=== PATIENT | female | born 1955 | race Hispanic/Latino ===

== ENCOUNTER 2017-06-07 18:50 | Emergency (ER) | payer BC | END 2017-06-07 19:50 | disposition left against medical advice (07) | LOC: ERS 18:50 | DX: Z53.21 Procedure and treatment not carried out due to patient leaving prior to being seen by health care provider (principal) | CPT/HCPCS: 93005; 94760 ==

== ENCOUNTER 2017-06-09 15:25 | Observation (INO) | payer BC ==
[2017-06-09 16:22] VITALS: BMI 43.9
[2017-06-09] MEDS ORDERED: Promethazine HCl 25 MG/ML VIAL IM/IV PRN (17:36)
[2017-06-09 17:39] LABS: #Basophils 0.1 thou/uL (0.0-0.2); #Lymphocytes 1.4 thou/uL (1.20-3.40); #Monocytes 0.6 thou/uL (0.11-0.59); #Neutrophils 5.3 thou/uL (1.40-6.50); %Basophils 0.9 % (0.0-1.0); %Eosinophils 0.5 % (0.0-10.0); %Lymphocytes 18.8 % (21.0-51.0); %Monocytes 7.8 % (0.0-10.0); Hemoglobin 13.4 g/dL (12.0-16.0); Mean Corpuscular HGB CONC 33.3 g/dL (32.0-36.0); Mean Corpuscular Hemoglobin 29.8 pg (27.0-31.0); Mean Corpuscular Volume 89.3 fl (81.0-99.0); Mean Platelet Volume 8.2 fL (7.4-10.4); Platelet Count 295 thou/uL (130-400); RBC Distribution Width 12.2 % (11.5-14.5); Red Blood Cell (RBC) Count 4.49 mill/uL (4.20-5.40); White Blood Cell (WBC) Count 7.3 thou/uL (4.8-10.8)
[2017-06-09] MEDS ORDERED: hydrALAZINE 20 MG/ML VIAL SLOW IVP PRN (17:59)
[2017-06-09] MEDS ORDERED: Labetalol HCl 100 MG/20 ML VIAL SLOW IVP PRN (17:59)
[2017-06-09] MEDS ORDERED: Sodium Chloride 0.9% 1,000 ML IV SCH (18:00)
[2017-06-09 18:01] LABS: ALT (SGPT) 12 U/L (8-55); AST (SGOT) 17 U/L (5-34); Albumin 4.2 g/dL (3.4-4.8); Alkaline Phosphatase 110 U/L (40-150); Anion Gap 12 mmol/L (10-20); BUN (Urea Nitrogen) 10 mg/dL (9.8-20.1); Bilirubin, Total 0.8 mg/dL (0.2-1.2); Calc. Creatinine Clearance 117 mL/min (70-130); Calcium 9.8 mg/dL (7.8-10.44); Carbon Dioxide 27 mmol/L (23-31); Chloride 106 mmol/L (98-107); Estimated GFR-MDRD 69; Globulin 3.1 g/dL (2.4-3.5); Glucose 119 mg/dL (80-115); Magnesium 2.2 mg/dL (1.6-2.6); Phosphorus 2.7 mg/dL (2.3-4.7); Potassium 3.4 mmol/L (3.5-5.1); Protein, Total 7.3 g/dL (6.0-8.3); Sodium 142 mmol/L (136-145)
[2017-06-09] MEDS: Ondansetron HCl/PF 4 MG/2 ML Vial IVP PRN (18:08)
[2017-06-09] MEDS: Lorazepam 2 MG/ML VIAL SLOW IVP PRN (18:16)
[2017-06-09] MEDS: Sodium Chloride 0.9% 1,000 ML IV SCH (18:25)
[2017-06-09] MEDS ORDERED: Docusate 100 MG CAP PO PRN (18:32)
[2017-06-09] MEDS ORDERED: Ondansetron ODT 4 MG TAB PO PRN (18:32)
[2017-06-09] MEDS ORDERED: Dextrose 50% Abboject 50 ML SYRINGE SLOW IVP PRN (18:50)
[2017-06-09] MEDS ORDERED: Dextrose 5% in Water 1,000 ML IV PRN (18:50)
[2017-06-09 18:52] LABS: Acetaminophen Less than 6.0 mcg/mL (10.0-30.0); Alcohol Less than 10 mg/dL (Less than 10); Salicylate Less than 8.0 mg/dL (15.0-30.0)
[2017-06-09 19:21] LABS: Cocaine Metabolite Screen Detected (NotDetected); Medtox Reader # READER 1; Methamphetamine Not Detected (NotDetected); Opiate Screen Detected (NotDetected); Phencyclidine (PCP) Not Detected (NotDetected); THC/Cannabinoid Screen Not Detected (NotDetected)
[2017-06-09 19:22] LABS: Amphetamine Not Detected (NotDetected); Barbiturates Screen Not Detected (NotDetected); Benzodiazepine Screen Not Detected (NotDetected); Medtox Control Line Valid? VALID (VALID); Methadone Not Detected (NotDetected); Oxycodone Screen Not Detected (NotDetected); Tricyclic Screen Not Detected (NotDetected)
[2017-06-09] MEDS: Apixaban 5 MG TAB PO SCH (20:50)
[2017-06-09] MEDS: Bupropion 100 MG SR TAB PO SCH (20:50)
[2017-06-09] MEDS ORDERED: Atorvastatin Calcium 40 MG TAB PO SCH (21:00)
[2017-06-09] MEDS ORDERED: Apixaban 5 MG TAB PO SCH (21:00)
[2017-06-10] MEDS: Lorazepam 2 MG/ML VIAL SLOW IVP PRN ×3 (00:35→14:06)
--- NOTE | 2017-06-10 01:00 | HP-2 ---
DATE OF ADMISSION: 06/09/2017 TIME: 1700 CODE STATUS: FULL. PRIMARY CARE PHYSICIAN: Jonny Hancock MD ATTENDING: Gonzales Butt M.D. RESIDENT: Leon Montalvo DO HISTORIAN: The patient. CHIEF COMPLAINT: Opiate withdrawals. HISTORY OF PRESENT ILLNESS: Patient presented to the clinic today asking for help with opiate withdrawals. Five days ago, she was prescribed 70 [place] 10 mg tablets and took them all within 5 days. In addition, she took additional tablets that she had purchased on the street so she has been doing this for some time; however, she has decided that she should stop abusing opiates and apparently had not had any since then. She is complaining of anxiety and pain, nausea, and diarrhea. Patient states that prior to coming in, she had been taking everything that had been prescribed. In addition, spending approximately $1000 on [place] that was bought "on the street" per month. In addition, patient had a blood pressure of 190s/110s. She was asymptomatic, denied dizziness, change in vision. This is apparently her baseline, as she does not typically take her antihypertensives that are prescribed. In general, she had an elevated blood pressure. She was sent over for hypertensive urgency for observation. PAST MEDICAL HISTORY: Hyperlipidemia, hypertension, CKD 3, opiate dependence, diabetes mellitus, diastolic congestive heart failure with preserved ejection fraction, atrial fibrillation, major depressive disorder, obstructive sleep apnea, and iron-deficient anemia. PAST SURGICAL HISTORY: None. ALLERGIES: None. MEDICATIONS: Metformin 1000 mg p.o. b.i.d, Wellbutrin 100 mg p.o. b.i.d., Zoloft 50 mg daily, metoprolol 100 mg daily, lisinopril 20 mg daily, Norvasc 10 mg daily, Lasix 40 mg daily, atorvastatin 40 mg daily, Eliquis 5 mg p.o. b.i.d. , and iron 325 mg daily. SOCIAL HISTORY: Tobacco none. Alcohol none. Drugs, opiates, specifically [place]. REVIEW OF SYSTEMS: General: Patient denies fever, chills, change in appetite. Admits to fatigue. HEENT: Denies any vision changes, eye pain, nasal congestion, or rhinorrhea. Respiratory: Denies any cough, congestion, or shortness of breath. Cardiovascular: Denies chest pains, palpitations, or edema. GI: Complains of nausea and diarrhea. Denies any vomiting, constipation, abdominal pain. Genitourinary: Denies incontinence, dysuria. Skin: Denies rash or lesions. Musculoskeletal: Complains of joint pain. Neurologic: No weakness or numbness. Psychiatric: Admits to anxiety, depression. PHYSICAL EXAMINATION: VITAL SIGNS: Blood pressure 169/82, pulse 80, respiratory rate 18, T-max 98.6, pulse ox 95% on room air, current weight 105 kilograms. GENERAL: Patient is alert and oriented x3 in no apparent distress. Patient is obese. HEENT: PERRLA, EOMI. Conjunctivae within normal limits. NECK: Supple without lymphadenopathy. CARDIAC: Regular rate and rhythm, no murmur. RESPIRATORY: Normal effort. Clear to auscultation bilaterally without retractions. SKIN: Warm and dry. ABDOMEN: Soft, nontender. Bowel sounds in all 4 quadrants without mass or distention. EXTREMITIES: There is no clubbing or cyanosis. MUSCULOSKELETAL: Structure is normal. Tone is normal. NEUROLOGIC: Cranial nerves II-XII are intact. There is no focal neurological deficits. LABORATORY DATA: CBC: Hemoglobin 13.4, hematocrit 40.1, white count 7.3, platelets 295. CMP: Sodium 142, potassium 3.4, chloride 106, bicarbonate 27, BUN 10, creatinine 0.84, glucose 119, calcium 9.3. Total serum protein 7.3, alkaline phos 4.2, total bilirubin 0.8. AST 17, ALT 12, alkaline phosphatase 110, GFR 69, phos is 2.7, mag is 2.2. BNP is 247 pending or UDS, serum Tylenol , and serum toxicity. ASSESSMENT AND PLAN: This is a 62-year-old female with hypertensive urgency and opiate withdrawals. 1. Hypertensive urgency. We will give her prescribed home meds. Monitor BMP. Get hydralazine p.r.n. 2. Opiate withdrawal and overdose to get Tylenol levels and UDS. Zofran, Phenergan for nausea and vomiting. Ativan PRN for agitation 3. Chronic kidney disease, 3. The patient is at her baseline GFR and creatinine. We will give p.o. fluids and get a repeat CMP in the morning. 4. Diabetes. Continue home meds. A.c. and at bedtime glucose checks. 5. Katty depression. Continue her home Zoloft and Wellbutrin. 6. Atrial fibrillation. Continue her home Eliquis and she is currently rate controlled. 7. Diastolic congestive heart failure. No current symptoms to her home statin. 8. Hypokalemia. This is mild and asymptomatic. We will recheck in the morning. ITZEL
[2017-06-10] MEDS ORDERED: Acetaminophen 325 MG TAB PO PRN (04:03)
[2017-06-10] MEDS: Sodium Chloride 0.9% 1,000 ML IV SCH ×2 (05:28→16:31)
[2017-06-10 05:30] LABS: ALT (SGPT) 11 U/L (8-55); AST (SGOT) 13 U/L (5-34); Albumin 3.6 g/dL (3.4-4.8); Alkaline Phosphatase 100 U/L (40-150); Anion Gap 12 mmol/L (10-20); BUN (Urea Nitrogen) 10 mg/dL (9.8-20.1); Bilirubin, Total 0.7 mg/dL (0.2-1.2); Calc. Creatinine Clearance 107 mL/min (70-130); Calcium 9.3 mg/dL (7.8-10.44); Carbon Dioxide 28 mmol/L (23-31); Chloride 106 mmol/L (98-107); Estimated GFR-MDRD 62; Globulin 2.9 g/dL (2.4-3.5); Glucose 98 mg/dL (80-115); Potassium 3.5 mmol/L (3.5-5.1); Protein, Total 6.5 g/dL (6.0-8.3); Sodium 142 mmol/L (136-145)
--- NOTE | 2017-06-10 05:49 | PDOC.FM ---
- Subjective Subjective: Pt doing well today. Complains of continued headache, nausea, and agitation. She has no new symptoms and that her existing symptoms are reasonably well controlled and improving. There were no acute events over night. - Objective MAR Reviewed: Yes Vital Signs & Weight: Vital Signs (12 hours) Temp Pulse Resp BP BP Pulse Ox 06/10/17 03:45 98.4 F 70 20 180/105 H 96 06/09/17 23:17 98.7 F 81 18 161/94 H 94 L 06/09/17 20:50 98.6 F 80 18 06/09/17 19:54 98.6 F 80 18 06/09/17 19:28 99.1 F 68 18 173/92 H 96 Weight Weight 105.324 kg I&O: 06/08/17 06/09/17 06/10/17 06:59 06:59 06:59 Intake Total 1529 Balance 1529 Result Diagrams: 06/09/17 17:03 06/10/17 04:38 <Leon Montalvo - Last Filed: 06/10/17 05:48> - Objective Vital Signs & Weight: Vital Signs (12 hours) Temp Pulse Resp BP Pulse Ox 06/10/17 11:27 98.1 F 83 20 164/102 H 96 06/10/17 08:00 98.0 F 87 16 06/10/17 07:44 98.0 F 87 16 183/93 H 95 06/10/17 06:21 76 173/94 H 06/10/17 03:45 98.4 F 70 20 180/105 H 96 Weight Weight 105.324 kg I&O: 06/09/17 06/10/17 06/11/17 06:59 06:59 06:59 Intake Total 1529 Balance 1529 Result Diagrams: 06/09/17 17:03 06/10/17 04:38 <Latisha Boyd - Last Filed: 06/10/17 13:04> Phys Exam - Physical Examination Constitutional: NAD HEENT: PERRLA, moist MMs Neck: no nodes, no JVD, supple Respiratory: clear to auscultation bilateral Cardiovascular: no significant murmur Gastrointestinal: soft, non-tender, no distention Musculoskeletal: no edema Neurological: non-focal, normal sensation, moves all 4 limbs Lymphatic: no nodes Psychiatric: A&O x 3 Deviation from normal: Pt has significant anxiety surrounding not having opiates Skin: no rash, normal turgor <Leon Montalvo - Last Filed: 06/10/17 05:48> Dx/Plan (1) Hypertensive urgency Code(s): I16.0 - HYPERTENSIVE URGENCY Status: Acute (2) Opiate withdrawal Code(s): F11.23 - OPIOID DEPENDENCE WITH WITHDRAWAL Status: Acute (3) Diastolic congestive heart failure Code(s): I50.30 - UNSPECIFIED DIASTOLIC (CONGESTIVE) HEART FAILURE Status: Chronic QualifierTitle: Congestive heart failure chronicity: chronic Qualified Code(s): I50.32 - Chronic diastolic (congestive) heart failure (4) Diabetes mellitus Code(s): E11.9 - TYPE 2 DIABETES MELLITUS WITHOUT COMPLICATIONS Status: Chronic QualifierTitle: Diabetes mellitus type: type 2 Diabetes mellitus complication status: with unspecified complications Diabetes mellitus jail insulin use: without jail use Qualified Code(s): E11.8 - Type 2 diabetes mellitus with unspecified complications (5) Atrial fibrillation Code(s): I48.91 - UNSPECIFIED ATRIAL FIBRILLATION Status: Chronic (6) CKD (chronic kidney disease) stage 2, GFR 60-89 ml/min Code(s): N18.2 - CHRONIC KIDNEY DISEASE, STAGE 2 (MILD) Status: Chronic - Plan Plan: 1. Hypertensive Urgency - BP continues to be elevated with a max of 180/105 - No antihypertensives have been given as of yet as they are her morning meds. It is unlikely that the pt has been compliant with her meds at home. Will give as ordered by PCP today and follow the BP. Will adjust tomorrow after getting a baseline of control when compliant. 2. Opiate withdrawal - tylenol level WNL. LFTs normal. No concern for OD as suspected on admission - N/V is controlled - Pt is anxious, however this is not severe - Order case management consult for possible placement in rehab facility. 3. dCHF - no signs of exacerbation - pt is currently at baseline - continue home antihypertensives, lasix, and statin 4. afib - rate controlled - continue eliquis 5. DM - ACHS BG checks, will adjust home meds if needed - continue metformin 6. CKD III - at baseline. Continue to follow BMP <Leon Montalvo - Last Filed: 06/10/17 05:48> Attending Addendum - Attending Addendum I personally evaluated the patient and discussed the management with Dr. Montalvo. I agree with the History, Examination, Assessment and Plan documented above with any addition or exceptions noted below. The patient was hypertensive this morning but she hasn't been taking bp meds as prescribed at home. Home med restarted. Will repeat tylenol level. From a withdrawal standpoint, she is doing well. Mood is improved. She denies concerns or agitation. <Latisha Boyd - Last Filed: 06/10/17 13:04>
[2017-06-10 06:58] LABS: Magnesium 2.2 mg/dL (1.6-2.6); Phosphorus 3.5 mg/dL (2.3-4.7)
[2017-06-10] MEDS ORDERED: metFORMIN 500 MG TAB PO SCH (08:00)
[2017-06-10] MEDS ORDERED: Lisinopril 20 MG TAB PO SCH (09:00)
[2017-06-10] MEDS ORDERED: Amlodipine 10 MG TAB PO SCH (09:00)
[2017-06-10] MEDS ORDERED: Furosemide 40 MG TAB PO SCH (09:00)
[2017-06-10] MEDS: Bupropion 100 MG SR TAB PO SCH (09:26)
[2017-06-10] MEDS: Apixaban 5 MG TAB PO SCH (09:27)
[2017-06-10] MEDS: Ondansetron HCl/PF 4 MG/2 ML Vial IVP PRN (09:30)
[2017-06-10 15:43] VITALS: BP 164/93; TEMP 97.6
[2017-06-10 16:06] LABS: ALT (SGPT) 12 U/L (8-55); AST (SGOT) 14 U/L (5-34); Acetaminophen Less than 6.0 mcg/mL (10.0-30.0); Alkaline Phosphatase 107 U/L (40-150); Anion Gap 13 mmol/L (10-20); BUN (Urea Nitrogen) 10 mg/dL (9.8-20.1); Bilirubin, Total 0.6 mg/dL (0.2-1.2); Calc. Creatinine Clearance 99 mL/min (70-130); Calcium 9.2 mg/dL (7.8-10.44); Carbon Dioxide 26 mmol/L (23-31); Chloride 105 mmol/L (98-107); Estimated GFR-MDRD 57; Globulin 3.2 g/dL (2.4-3.5); Glucose 119 mg/dL (80-115); Potassium 3.2 mmol/L (3.5-5.1); Protein, Total 7.2 g/dL (6.0-8.3); Sodium 141 mmol/L (136-145)
[2017-06-10] MEDS ORDERED: Potassium Chloride 20 MEQ TAB PO SCH (16:30)
--- NOTE | 2017-06-11 00:14 | DIS-2 ---
DATE OF ADMISSION: 06/09/2017 DATE OF DISCHARGE: 06/10/2017 RESIDENT: Leon Montalvo D.O. ADMITTING ATTENDING: Gonzales Butt M.D. DISCHARGE ATTENDING: Latisha Boyd M.D. CONSULTATIONS: None. PROCEDURES: None. PRIMARY DIAGNOSIS: Hypertensive urgency. SECONDARY DIAGNOSES: Opiate withdrawal, hypertension, diabetes, cholesterol, congestive heart failure with preserved ejection fraction, paroxysmal atrial fibrillation. DISCHARGE MEDICATIONS: Bupropion 100 mg p.o. b.i.d., metformin 1000 mg p.o. b.i.d., Zofran 4 mg p.o. q.i.d. p.r.n. nausea, Lipitor 40 mg p.o. at bedtime, Eliquis 5 mg p.o. b.i.d., metoprolol succinate 100 mg p.o. daily, lisinopril 20 mg p.o. daily, Colace 100 mg p.o. p.r.n., amlodipine 10 mg p.o. daily, furosemide 40 mg p.o. daily, sertraline 50 mg p.o. daily. DISCONTINUED MEDICATIONS: [place]. HOSPITAL COURSE: The patient was directly admitted from clinic with hypertensive urgency with systolic blood pressure in the 190s. Additionally, patient was withdrawing from opiates concerning the hypertension. Patient has been noncompliant with medications and was taking none of the prescribed medications. Patient was monitored for signs of end organ damages, but at no time, did she exhibit any symptoms. Creatinine was at baseline. She experienced no headache or change in his vision and at the time of discharge, her blood pressure is still elevated. She will be restarted on her home medications and was not to the point of concern. Blood pressure was 160s/90s. Concerning opiate withdrawal, apparently the patient had taken at least 70 [place] 10/325 within a 5-day period and had been taking similar quantities of the medication between prescription and was buying elicitly for some time. Patient on Thursday when she ran out, decided that she should stop abusing the drugs and quit taking the medication. She presented to the clinic on Thursday with anxiety, nausea, headache and was asking for help for opiate withdrawals. While admitted the patient was given Phenergan and Zofran for nausea and Ativan for anxiety. At this time of admission, patient had most symptoms are resolved. She is no longer anxious. We discussed outpatient rehab and this has been initiated in the clinic. Patient knows to follow up before the end of the week in clinic to begin getting her set up with outpatient rehab for opiate addiction. DISCHARGE INSTRUCTIONS: Disposition: Stable. Location: Home. Diet: Heart healthy and a low carb. FOLLOWUP: Follow up with PCP, Dr. Jonny Hancock within 3 days. ITZEL
--- NOTE | 2017-06-18 19:30 | EKG ---
Test Reason : ROUTINE Blood Pressure : / mmHG Vent. Rate : 084 BPM Atrial Rate : 147 BPM P-R Int : 000 ms QRS Dur : 090 ms QT Int : 354 ms P-R-T Axes : 000 004 071 degrees QTc Int : 418 ms Atrial fibrillation Abnormal ECG When compared with ECG of 07-JUN-2017 19:04, (Unconfirmed) No significant change was found Confirmed by BARBARA OLMOS ([id number]) on 06/18/2017 7:29:35 PM Referred By: AAKASH Confirmed By:BARBARA OLMOS
== END 2017-06-10 16:46 | disposition home or self-care (01) ==
LOC: 2SW 15:45
PROVIDERS: ADMIT Family Medicine; ATTEND Family Medicine
DX: I16.0 Hypertensive urgency (principal); F11.23 Opioid dependence with withdrawal; E78.00 Pure hypercholesterolemia, unspecified; I48.0 Paroxysmal atrial fibrillation; E78.5 Hyperlipidemia, unspecified; E11.22 Type 2 diabetes mellitus with diabetic chronic kidney disease; I13.0 Hypertensive heart and chronic kidney disease with heart failure and stage 1 through stage 4 chronic kidney disease, or unspecified chronic kidney disease; I50.30 Unspecified diastolic (congestive) heart failure; N18.3 Chronic kidney disease, stage 3 (moderate); F32.9 Major depressive disorder, single episode, unspecified; G47.33 Obstructive sleep apnea (adult) (pediatric); D50.9 Iron deficiency anemia, unspecified; E87.6 Hypokalemia; Z91.14 Patient's other noncompliance with medication regimen; Z79.84 Long term (current) use of oral hypoglycemic drugs; Z79.01 Long term (current) use of anticoagulants; Z79.899 Other long term (current) drug therapy
CPT/HCPCS: 36415; 36416; 80053; 80306; 80307; 83735; 83880; 84100; 85025; 93005; 93010; 96361; 96374; 96376; 99282; A4216; G0378; J2060; J2405

== ENCOUNTER 2017-10-27 20:51 | Emergency (ER) | payer BC ==
[2017-10-27 21:26] LABS: #Basophils 0.1 thou/uL (0.0-0.2); #Eosinphils 0.1 thou/uL (0.0-0.7); #Lymphocytes 1.1 thou/uL (1.20-3.40); #Monocytes 0.4 thou/uL (0.11-0.59); #Neutrophils 6.1 thou/uL (1.40-6.50); %Basophils 0.6 % (0.0-1.0); %Eosinophils 0.9 % (0.0-10.0); %Lymphocytes 14.3 % (21.0-51.0); %Monocytes 5.4 % (0.0-10.0); %Neutrophils 78.8 % (42.0-75.0); Hemoglobin 12.2 g/dL (12.0-16.0); Mean Corpuscular HGB CONC 34.1 g/dL (32.0-36.0); Mean Corpuscular Hemoglobin 30.7 pg (27.0-31.0); Mean Corpuscular Volume 89.8 fl (81.0-99.0); Mean Platelet Volume 7.8 fL (7.4-10.4); Platelet Count 238 thou/uL (130-400); RBC Distribution Width 12.1 % (11.5-14.5); Red Blood Cell (RBC) Count 3.99 mill/uL (4.20-5.40); White Blood Cell (WBC) Count 7.8 thou/uL (4.8-10.8)
[2017-10-27 21:43] LABS: Bilirubin Negative (Negative); Blood, Urine Negative (Negative); Clarity CLEAR (Clear); Glucose, Urine (Dipstick) Negative (Negative); Leukocyte Small (Negative); Nitrite Negative (Negative); Protein, Urine (Dipstick) Negative (Neg-Trace); Specific Gravity, Urine 1.023 (1.002-1.036); pH, Urine 6.5 (5.0-9.0)
[2017-10-27 21:44] LABS: Bacteria/HPF None Seen HPF (None Seen); Hyaline Casts/LPF 0-3 HYALINE CAST LPF (0-3 Hyaline); Pathc Cast-AUWi Flag 0.29 (0-2.49); RBC/HPF 0-3 HPF (0-3); Squamous Epithelial 0-3 HPF (0-3)
[2017-10-27 21:47] LABS: ALT (SGPT) 10 U/L (8-55); AST (SGOT) 15 U/L (5-34); Acetaminophen Less than 6.0 mcg/mL (10.0-30.0); Albumin 3.9 g/dL (3.4-4.8); Alcohol Less than 10 mg/dL (Less than 10); Alkaline Phosphatase 92 U/L (40-150); Anion Gap 12 mmol/L (10-20); BUN (Urea Nitrogen) 20 mg/dL (9.8-20.1); Bilirubin, Total 0.6 mg/dL (0.2-1.2); Calc. Creatinine Clearance 0 mL/min (70-130); Carbon Dioxide 23 mmol/L (23-31); Chloride 108 mmol/L (98-107); Estimated GFR-MDRD 67; Globulin 2.7 g/dL (2.4-3.5); Glucose 183 mg/dL (80-115); Protein, Total 6.6 g/dL (6.0-8.3); Salicylate Less than 8.0 mg/dL (15.0-30.0); Sodium 139 mmol/L (136-145)
[2017-10-27 21:51] LABS: Amphetamine Not Detected (NotDetected); Barbiturates Screen Not Detected (NotDetected); Benzodiazepine Screen Not Detected (NotDetected); Cocaine Metabolite Screen Not Detected (NotDetected); Medtox Control Line Valid? VALID (VALID); Medtox Reader # READER 1; Methadone Not Detected (NotDetected); Methamphetamine Not Detected (NotDetected); Opiate Screen Detected (NotDetected); Oxycodone Screen Not Detected (NotDetected); Phencyclidine (PCP) Not Detected (NotDetected); THC/Cannabinoid Screen Not Detected (NotDetected); Tricyclic Screen Not Detected (NotDetected)
== END 2017-10-27 23:07 | disposition home or self-care (01) ==
LOC: ERS 20:51
DX: R53.1 Weakness (principal); R41.82 Altered mental status, unspecified; T39.1X5A Adverse effect of 4-Aminophenol derivatives, initial encounter; E11.9 Type 2 diabetes mellitus without complications; I11.0 Hypertensive heart disease with heart failure; I50.9 Heart failure, unspecified
CPT/HCPCS: 36415; 80053; 80306; 80307; 81003; 81015; 85025; 99283

== ENCOUNTER 2018-02-07 18:30 | Inpatient (IN) | payer BC, SELFPAY ==
[2018-02-07 18:52] LABS: #Basophils 0.1 thou/uL (0.0-0.2); #Eosinphils 0.1 thou/uL (0.0-0.7); #Lymphocytes 1.7 thou/uL (1.20-3.40); #Monocytes 0.5 thou/uL (0.11-0.59); %Basophils 1.2 % (0.0-1.0); %Eosinophils 1.2 % (0.0-10.0); %Lymphocytes 26.7 % (21.0-51.0); %Monocytes 8.5 % (0.0-10.0); %Neutrophils 62.4 % (42.0-75.0); Hemoglobin 13.2 g/dL (12.0-16.0); Mean Corpuscular HGB CONC 33.7 g/dL (32.0-36.0); Mean Corpuscular Volume 88.9 fL (78.0-98.0); Mean Platelet Volume 7.9 fL (7.4-10.4); Platelet Count 248 thou/uL (130-400); RBC Distribution Width 12.9 % (11.5-14.5); White Blood Cell (WBC) Count 6.3 thou/uL (4.8-10.8)
[2018-02-07 19:18] LABS: ALT (SGPT) 11 U/L (8-55); AST (SGOT) 17 U/L (5-34); Albumin 4.2 g/dL (3.4-4.8); Alkaline Phosphatase 111 U/L (40-150); Anion Gap 11 mmol/L (10-20); BUN (Urea Nitrogen) 13 mg/dL (9.8-20.1); Bilirubin, Total 0.5 mg/dL (0.2-1.2); CK (CPK) 87 U/L (29-168); Calc. Creatinine Clearance 0 mL/min (70-130); Calcium 9.3 mg/dL (7.8-10.44); Carbon Dioxide 26 mmol/L (23-31); Chloride 106 mmol/L (98-107); Estimated GFR-MDRD 72; Globulin 3.3 g/dL (2.4-3.5); Glucose 128 mg/dL (80-115); Lipase 19 U/L (8-78); Potassium 3.3 mmol/L (3.5-5.1); Protein, Total 7.5 g/dL (6.0-8.3); Sodium 140 mmol/L (136-145)
[2018-02-07 19:19] LABS: CKMB 1.7 ng/mL (0-6.6); Troponin I Less than 0.010 ng/mL (< 0.028)
[2018-02-07] MEDS ORDERED: Nitroglycerin 0.4 MG TAB (25 Tab Bottle) ONE (19:20)
[2018-02-07] MEDS ORDERED: Furosemide 40 MG/4 ML VIAL ONE (19:20)
[2018-02-07] MEDS ORDERED: Nitroglycerin 2% Ointment 1 INCH/1 GM Packet ONE (20:33)
[2018-02-07] MEDS ORDERED: Potassium Chloride 20 MEQ TAB ONE (20:33)
--- NOTE | 2018-02-07 20:45 | RAD ---
RADIOGRAPH CHEST 1 VIEW: Date: 02-07-18 Time: 6:46 p.m. HISTORY: 62-year-old female with dyspnea. COMPARISON: 01-15-17 FINDINGS: Again noted is the cardiomegaly. There is a new finding of patchy area of increased density in the ri ght lower lung zone, and questionably also in the retrocardiac portion of left lower lobe. No pneumot horax. No effacement of lateral costophrenic angles. IMPRESSION: 1. Right basilar infiltrate vs atelectasis. 2. Cardiomegaly. 3. Questionable left lower infiltrate. MILEY [] POS: ALEKS
[2018-02-07] MEDS ORDERED: Ondansetron HCl/PF 4 MG/2 ML Vial ONE ×2 (21:19→22:15)
[2018-02-07] MEDS ORDERED: niCARdipine 20MG In NaCl 20 MG/200 ML BAG ONE (21:19)
[2018-02-07] MEDS ORDERED: Acetaminophen 325 MG TAB ONE (22:15)
[2018-02-07] MEDS ORDERED: HumaLOG 300 UNITS/3 ML VIAL SC PRN (22:58)
[2018-02-07] MEDS ORDERED: Dextrose 5% in Water 1,000 ML IV PRN (22:58)
[2018-02-07] MEDS ORDERED: Dextrose 50% Abboject 50 ML SYRINGE SLOW IVP PRN (22:58)
[2018-02-07 22:59] LABS: Troponin I Less than 0.010 ng/mL (< 0.028)
[2018-02-07] MEDS ORDERED: Diltiazem 125 MG in Sodium Chloride 0.9% 100 ML IVPB SCH (23:00)
[2018-02-08] MEDS: Acetaminophen 325 MG TAB PO PRN ×2 (00:39→20:45)
[2018-02-08 01:34] VITALS: BMI 42.4
[2018-02-08 01:59] LABS: Troponin I Less than 0.010 ng/mL (< 0.028)
[2018-02-08] MEDS: Ondansetron HCl/PF 4 MG/2 ML Vial IVP PRN ×3 (02:51→23:09)
[2018-02-08] MEDS ORDERED: Docusate 100 MG CAP PO PRN (03:12)
[2018-02-08 04:05] LABS: Amphetamine Not Detected (NotDetected); Barbiturates Screen Not Detected (NotDetected); Benzodiazepine Screen Not Detected (NotDetected); Cocaine Metabolite Screen Detected (NotDetected); Medtox Control Line Valid? VALID (VALID); Medtox Reader # READER 4; Methadone Not Detected (NotDetected); Methamphetamine Not Detected (NotDetected); Opiate Screen Detected (NotDetected); Oxycodone Screen Detected (NotDetected); Phencyclidine (PCP) Not Detected (NotDetected); THC/Cannabinoid Screen Not Detected (NotDetected); Tricyclic Screen Not Detected (NotDetected)
--- NOTE | 2018-02-08 05:37 | HP ---
PRIMARY CARE PHYSICIAN: No PCP. CODE STATUS: FULL CODE. TIME OF EVALUATION: 9:10 p.m. CHIEF COMPLAINT: Chest pain, headache, found to have high blood pressure, that was in control. HISTORY OF PRESENT ILLNESS: This is a 62-year-old female patient. The patient has a past medical hi story of hypertension, diabetes, CHF, noncompliance. The patient was not taking medication at home, came to the hospital after having headache and was associated with chest pain, but no clear triggers, no alleviating factors. The patient during my examination high blood pressure 220/115, for the reaso n placed on Cardene drip with resolution of the dizziness, headache, and uncontrolled blood pressure. The patient developed AFib with RVR and therefore switched to Cardizem drip. We will need Cardiolo gy consult in the morning for further recommendations. The patient has bilateral infiltrates. No ev idence of any infection, will be secondary to underlying CHF that might be caused by hypertensive karis rgency. Symptoms are severe. Much improved after initial treatment. REVIEW OF SYSTEMS: Constitutional: No fever or chills. The patient reported generalized weakness. Respiratory: No cough, sputum production. She reported shortness of breath. Cardiovascular: No c hest pain, palpitations or shortness of breath. Gastrointestinal: The patient had nausea, no vomiti ng, no diarrhea or abdominal pain. NREMT: No dizziness. The patient reported headache. Feeling ligh theaded with high blood pressure. Genitourinary: No burning on urination. Extremities: No leg swe lling. All other systems were reviewed and are negative except for the findings mentioned above. PAST MEDICAL HISTORY: Was mentioned in the HPI. SOCIAL HISTORY: She lives at home, abuse cocaine, no alcohol use. No smoking. PSYCHIATRIC HISTORY: No previous psych history. PAST SURGICAL HISTORY: Cholecystectomy, hysterectomy, tubal ligation, hernia repair. PHYSICAL EXAMINATION: VITAL SIGNS: On presentation, during my examination, the patient had blood pressure 220/115, heart r ate 111, respiratory rate was 18, temperature 98.2, oxygen saturation 94% on room air. GENERAL APPEARANCE: The patient is alert, oriented, in distress due to headache and chest pain. HEENT: Eyes: Normal conjunctivae. Moist oral mucosa. Anicteric. NECK: No JVD. RESPIRATORY: Bilateral air entry. No rales, no wheezing. Symmetric expansion. CARDIOVASCULAR: The patient is tachycardic, irregular rhythm. No murmurs, no gallop. No edema. ABDOMEN: Soft, normal bowel sounds. MUSCULOSKELETAL: Baseline range of motion and strength. No tenderness. SKIN: Warm and intact. No pallor, no rash or redness. Peripheral pulses are present. Capillary re fill seems to be intact. NEUROLOGIC: Baseline sensory. No evidence of any new focal weakness. Baseline speech. Cranial see m to be intact. PSYCHIATRIC: The patient is in a good mood. No anxiety, oriented, optimal judgment. IMAGING: EKG was reviewed. The patient has atrial fibrillation with RVR at a rate of 118, QRS 80, Q T corrected 477. Chest x-ray, right basilar infiltrate versus atelectasis, cardiomegaly, questionabl e left lower infiltrate. LABORATORY DATA: Labs were reviewed. White count 6.3, hemoglobin 13.2, MCV 88, platelet count 148,0 00. D-dimer was normal. Sodium 140, potassium 3.3, creatinine 0.8, carbon dioxide 36, anion gap 11, BUN 13, glucose 128, calcium 9.3, magnesium 2.1, total bilirubin 0.5, AST 17, ALT 11, alkaline phosp hatase 111. CK 87, CK-MB 1.7, troponin was negative x3. Beta natriuretic peptide 287. ASSESSMENT AND PLAN: The patient will be placed in the hospital with following medical problems: Critical care time extended more than 35 minutes in patient's assessment, hemodynamic stabilization, coordination of care, review elaboration of records. 1. Hypertensive emergency. The patient presented with nausea, headache, chest pain due to very lavell re high blood pressure, the patient was started on Cardene drip with resolution of the symptoms as he r blood pressure came down. Troponin has been negative x3. There is no elevation in BUN and creatin ine. Hypertensive encephalopathy has resolved. 2. Hypertensive encephalopathy giving nausea, severe headache, and chest pain during episode of very high blood pressure, symptoms have improved after blood pressure has down with a Cardene drip. 3. Atrial fibrillation with rapid ventricular response. The patient was placed on the Cardizem drip . We will need Cardiology consult for further management. 4. Uncontrolled diabetes with hyperglycemia. Blood sugar and place the patient on sliding sca le for edema control. 5. Hypokalemia with potassium 3.3, replace electrolytes. This is minimal. 6. Elevated proBNP in the setting of hypertensive emergency. Last echocardiogram was done in 2015. At that time, the patient as per old record reviews normal EF with possible diastolic dysfunct ion since patient was in atrial fibrillation during the study. We will repeat echo in the morning. We will start the patient on Lasix. 7. Pulmonary edema is seen on the chest x-ray. There is no evidence of infection. At this point, t he patient restarts her Lasix. We will reconcile home medicines updated. We will follow recommendat ion for any further management. 8. Deep venous thrombosis prophylaxis.
[2018-02-08 05:44] LABS: #Basophils 0.1 thou/uL (0.0-0.2); #Eosinphils 0.1 thou/uL (0.0-0.7); #Lymphocytes 1.2 thou/uL (1.20-3.40); #Monocytes 0.5 thou/uL (0.11-0.59); #Neutrophils 5.5 thou/uL (1.40-6.50); %Basophils 0.7 % (0.0-1.0); %Eosinophils 0.9 % (0.0-10.0); %Lymphocytes 16.8 % (21.0-51.0); %Monocytes 6.8 % (0.0-10.0); %Neutrophils 74.7 % (42.0-75.0); Hemoglobin 12.4 g/dL (12.0-16.0); Mean Corpuscular HGB CONC 33.7 g/dL (32.0-36.0); Mean Corpuscular Hemoglobin 29.5 pg (27.0-31.0); Mean Corpuscular Volume 87.5 fL (78.0-98.0); Mean Platelet Volume 8.5 fL (7.4-10.4); Platelet Count 256 thou/uL (130-400); RBC Distribution Width 13.1 % (11.5-14.5); Red Blood Cell (RBC) Count 4.22 mill/uL (4.20-5.40); White Blood Cell (WBC) Count 7.4 thou/uL (4.8-10.8)
[2018-02-08 06:04] LABS: Anion Gap 10 mmol/L (10-20); BUN (Urea Nitrogen) 11 mg/dL (9.8-20.1); Calc. Creatinine Clearance 113 mL/min (70-130); Carbon Dioxide 28 mmol/L (23-31); Chloride 104 mmol/L (98-107); Estimated GFR-MDRD 69; Glucose 182 mg/dL (80-115); Potassium 3.1 mmol/L (3.5-5.1); Sodium 139 mmol/L (136-145)
[2018-02-08] MEDS: Amlodipine 10 MG TAB PO SCH (07:59)
[2018-02-08] MEDS: Lisinopril 20 MG TAB PO SCH (07:59)
[2018-02-08] MEDS: Apixaban 5 MG TAB PO SCH ×2 (07:59→20:45)
[2018-02-08] MEDS: Furosemide 40 MG/4 ML VIAL SLOW IVP SCH (08:00)
--- NOTE | 2018-02-08 09:29 | PDOC.PN ---
- Subjective Encounter Start Date: 02/08/18 Encounter Start Time: 09:27 Subjective: osborne, aches and pains - Objective Resuscitation Status: Resuscitation Status FULL:Full Resuscitation MAR Reviewed: Yes Vital Signs & Weight: Vital Signs (12 hours) Temp Pulse Resp Pulse Ox 02/08/18 07:59 56 L 02/08/18 07:28 98 F 56 L 17 93 L 02/08/18 07:00 98 F 02/08/18 04:00 98.1 F 02/08/18 02:10 98.0 F 98 14 95 02/08/18 01:00 98.0 F Weight Weight 224 lb 10.417 oz Most Recent Monitor Data Heart Rate from ECG 62 NIBP 147/83 NIBP BP-Mean 124 Respiration from ECG 13 SpO2 94 I&O: 02/07/18 02/08/18 02/09/18 06:59 06:59 06:59 Intake Total 325 240 Output Total 650 Balance -325 240 Result Diagrams: 02/08/18 05:30 02/08/18 05:30 Phys Exam - Physical Examination Neck: no JVD Respiratory: clear to auscultation bilateral Cardiovascular: no significant murmur, irregular Gastrointestinal: soft, positive bowel sounds Musculoskeletal: no edema Neurological: non-focal Dx/Plan (1) Atrial fibrillation with rapid ventricular response Code(s): I48.91 - UNSPECIFIED ATRIAL FIBRILLATION Status: Acute (2) Cocaine abuse Code(s): F14.10 - COCAINE ABUSE, UNCOMPLICATED Status: Acute (3) Opioid abuse Code(s): F11.10 - OPIOID ABUSE, UNCOMPLICATED Status: Acute (4) Hypertensive urgency Code(s): I16.0 - HYPERTENSIVE URGENCY Status: Resolved (5) Diabetes mellitus type 2 in obese Code(s): E11.9 - TYPE 2 DIABETES MELLITUS WITHOUT COMPLICATIONS; E66.9 - OBESITY , UNSPECIFIED Status: Chronic (6) HLD (hyperlipidemia) Code(s): E78.5 - HYPERLIPIDEMIA, UNSPECIFIED Status: Chronic Qualifiers: (7) Hypertension Code(s): I10 - ESSENTIAL (PRIMARY) HYPERTENSION Status: Chronic - Plan transfer to tele -: accu/ss -: resume home meds -: no chronic anticosg in non-compliant patient * .
[2018-02-08] MEDS ORDERED: Dextrose 5% in Water 1,000 ML IV PRN (09:31)
[2018-02-08] MEDS ORDERED: Dextrose 50% Abboject 50 ML SYRINGE SLOW IVP PRN (09:31)
[2018-02-08] MEDS ORDERED: HumaLOG 300 UNITS/3 ML VIAL SC PRN (09:31)
[2018-02-08] MEDS: metFORMIN 500 MG TAB PO SCH (16:31)
[2018-02-08] MEDS: Sodium Chloride 0.9% 10 ML ONE ×2 (20:45→23:10)
[2018-02-08] MEDS ORDERED: Atorvastatin Calcium 40 MG TAB PO SCH (21:00)
[2018-02-08] MEDS ORDERED: Sodium Chloride 0.9% 10 ML ONE (23:03)
[2018-02-09 04:16] VITALS: TEMP 98.1
--- NOTE | 2018-02-09 07:42 | DIS ---
DATE OF ADMISSION: 02/07/2018 DATE OF DISCHARGE: 02/09/2018 PRIMARY CARE PROVIDER: None. FINAL DIAGNOSES: Hypertensive urgency, atrial fibrillation with rapid ventricular response, cocaine abuse, opioid abuse. DISCHARGE MEDICATIONS: Lasix 40 mg a day, lisinopril 20 mg a day, metoprolol 100 mg a day, metformin 1000 mg a day, aspirin 325 mg a day. ALLERGIES: No known drug allergies. PENDING AT THE TIME OF DISCHARGE: Nothing. CODE STATUS: FULL. DIET: Diabetes. HOSPITAL COURSE: The patient admitted to [facility] with atrial fibrillation, rapid v entricular response, chest pain, elevated blood pressure. She is found to have cocaine, oxycodone, a nd opiates on her drug screen. She was treated with diltiazem. Blood pressure rapidly came to lacho l. Tachycardia resolved. She was initially treated in ICU. Moved to floor. Currently, today, she is doing well. Blood pressure ranging 124/68-151/84, pulse 60-80, respirations 16-18, heart has an i rregular rate and rhythm. Lungs: Clear. She states she has no PCP. She has been advised she needs to get one for followup. She is being discharged on her usual home medicines. No long-acting antic oagulant is being given, because of her noncompliance with medications, her illicit use of oxycodone and opiates or illicit use of cocaine. This has been explained to her. CONSULTATIONS: No consultations. PROCEDURES: No procedures. She is being discharged on full dose aspirin.
[2018-02-09] MEDS: metFORMIN 500 MG TAB PO SCH (08:01)
[2018-02-09] MEDS: Furosemide 40 MG/4 ML VIAL SLOW IVP SCH (08:02)
[2018-02-09] MEDS: Lisinopril 20 MG TAB PO SCH (08:02)
[2018-02-09] MEDS: Amlodipine 10 MG TAB PO SCH (08:02)
[2018-02-09] MEDS: Apixaban 5 MG TAB PO SCH (08:02)
[2018-02-09 10:28] VITALS: BP 144/78
--- NOTE | 2018-02-09 15:50 | CON ---
DATE OF CONSULTATION: 02/09/2018 HISTORY OF PRESENT ILLNESS: The patient is a 62-year-old woman with a history of atrial fibrillation who presented with shoulder discomfort and a markedly elevated blood pressure. The patient has a hi story of hypertension. She has been seeing Dr. Truong several years ago and was diagnosed with atr ial fibrillation. The patient has been on chronic anticoagulation therapy. Approximately 4 months a go, the patient stopped taking all of her blood pressure medications and her Eliquis. The patient pr esented to the emergency room with pain in her left shoulder. PAST MEDICAL HISTORY: The patient's past medical history is significant for, 1. Atrial fibrillation. 2. Hypertension. PAST SURGICAL HISTORY: She has had a cholecystectomy, hysterectomy, hernia surgery, tubal ligation, arthroscopic knee surgery. SOCIAL HISTORY: Nonsmoker. Does snort cocaine. MEDICATIONS ON ADMISSION: None. ALLERGIES: No known drug allergies. FAMILY HISTORY: Positive family history of heart disease. REVIEW OF SYSTEMS: Ten-point system otherwise unremarkable. PHYSICAL EXAMINATION: GENERAL: This is an obese woman in no acute distress. VITAL SIGNS: Blood pressure 131/81. NECK: No jugular distention, no carotid bruits. LUNGS: Clear to auscultation. HEART: Irregular rate and rhythm, normal S1, S2, no murmurs. ABDOMEN: Distended. EXTREMITIES: Showed trace edema. SKIN: Warm and dry. NEUROLOGIC: Nonfocal. VASCULAR: Radial pulses were 2+. LABORATORY DATA: Sodium 139, potassium 3.1, chloride 104, bicarbonate 28, BUN 11, creatinine 0.84, g lucose 281, troponin less than 0.01. White blood cell count 7.4, hemoglobin 12.4, hematocrit 36.9, p latelets are 256. Her EKG revealed atrial fibrillation with an otherwise unremarkable ECG. IMPRESSION: 1. Atrial fibrillation. 2. Hypertension. 3. Noncompliance. 4. Cocaine abuse. 5. Obesity. This patient presented with a hypertensive crisis. The patient is noncompliant with her medications. We will check the patient's echocardiogram. We will follow this [facility]
== END 2018-02-09 10:28 | disposition home or self-care (01) | DRG 305 ==
LOC: ERS 18:30 → CCU 21:19 → 2NO 02-08 10:31
PROVIDERS: ADMIT Hospitalist; ATTEND Hospitalist
DX: I16.0 Hypertensive urgency (principal); I67.4 Hypertensive encephalopathy; Z68.41 Body mass index [BMI] 40.0-44.9, adult; I10 Essential (primary) hypertension; I48.91 Unspecified atrial fibrillation; F14.10 Cocaine abuse, uncomplicated; F11.10 Opioid abuse, uncomplicated; E11.65 Type 2 diabetes mellitus with hyperglycemia; E87.6 Hypokalemia; E66.9 Obesity, unspecified; E78.5 Hyperlipidemia, unspecified; Z91.14 Patient's other noncompliance with medication regimen; Z79.84 Long term (current) use of oral hypoglycemic drugs; Z79.899 Other long term (current) drug therapy
CPT/HCPCS: 36415; 36416; 71045; 80048; 80053; 80306; 82550; 82553; 83690; 83735; 83880; 84484; 85025; 85379; 93005; 93306; 94760; 96365; 96374; 96375; A4216; J1940; J2405; J7050

== ENCOUNTER 2018-06-17 13:53 | Emergency (ER) | payer SELFPAY ==
[2018-06-17] MEDS ORDERED: Furosemide 40 MG/4 ML VIAL ONE (14:14)
[2018-06-17] MEDS ORDERED: Metoprolol Tartrate 25 MG TAB ONE (14:14)
[2018-06-17] MEDS ORDERED: Metoprolol Tartrate 5 MG/5 ML VIAL ONE (14:15)
--- NOTE | 2018-06-17 14:49 | RAD ---
PORTABLE CHEST: HISTORY: Dyspnea. COMPARISON: 02/07/2018. FINDINGS: Cardiomegaly. Mild vascular engorgement. There is mild interstitial prominence may represent mild i nterstitial congestion. No confluent alveolar edema or infiltrate. No significant effusion. IMPRESSION: Cardiomegaly and mild congestive change. POS: H
[2018-06-17 15:01] LABS: ALT (SGPT) 20 U/L (8-55); AST (SGOT) 20 U/L (5-34); Alkaline Phosphatase 115 U/L (40-150); Anion Gap 15 mmol/L (10-20); BUN (Urea Nitrogen) 17 mg/dL (9.8-20.1); Bilirubin, Total 0.6 mg/dL (0.2-1.2); Calc. Creatinine Clearance 0 mL/min (70-130); Calcium 8.9 mg/dL (7.8-10.44); Carbon Dioxide 20 mmol/L (23-31); Chloride 108 mmol/L (98-107); Estimated GFR-MDRD 67; Glucose 133 mg/dL (80-115); Potassium 3.8 mmol/L (3.5-5.1); Sodium 139 mmol/L (136-145)
[2018-06-17 15:05] LABS: #Eosinphils 0.1 thou/uL (0.0-0.7); #Lymphocytes 1.6 thou/uL (1.20-3.40); #Monocytes 0.6 thou/uL (0.11-0.59); #Neutrophils 5.8 thou/uL (1.40-6.50); %Basophils 0.5 % (0.0-1.0); %Eosinophils 1.5 % (0.0-10.0); %Lymphocytes 19.9 % (21.0-51.0); %Monocytes 7.2 % (0.0-10.0); %Neutrophils 70.8 % (42.0-75.0); Mean Corpuscular HGB CONC 32.9 g/dL (32.0-36.0); Mean Corpuscular Hemoglobin 27.7 pg (27.0-31.0); Mean Corpuscular Volume 84.2 fL (78.0-98.0); Mean Platelet Volume 8.4 fL (7.4-10.4); Platelet Count 238 thou/uL (130-400); RBC Distribution Width 13.5 % (11.5-14.5); Red Blood Cell (RBC) Count 4.71 mill/uL (4.20-5.40); White Blood Cell (WBC) Count 8.2 thou/uL (4.8-10.8)
--- NOTE | 2018-06-18 13:56 | EKG ---
Test Reason : SOB Blood Pressure : / mmHG Vent. Rate : 113 BPM Atrial Rate : 113 BPM P-R Int : 000 ms QRS Dur : 086 ms QT Int : 278 ms P-R-T Axes : 000 038 089 degrees QTc Int : 381 ms Atrial fibrillation with rapid ventricular response with premature ventricular or aberrantly conducte d complexes Nonspecific ST and T wave abnormality Abnormal ECG Confirmed by MISTY TADEO D.O. ([id number]), purchasing expeditor MICHELL CARLOS ([id number]) on 06/18/2018 1:56:30 PM Referred By: CARLYLE Confirmed By:MISTY TADEO D.O.
== END 2018-06-17 15:27 | disposition home or self-care (01) ==
LOC: ERS 13:53
DX: I11.0 Hypertensive heart disease with heart failure (principal); I50.9 Heart failure, unspecified; F14.10 Cocaine abuse, uncomplicated; I48.91 Unspecified atrial fibrillation; E11.9 Type 2 diabetes mellitus without complications; M19.90 Unspecified osteoarthritis, unspecified site
CPT/HCPCS: 36415; 71045; 80053; 83880; 84484; 85025; 93005; 94760; 96374; 96375; J1940

== ENCOUNTER 2020-08-27 13:42 | Outpatient (CLI) | payer BC ==
[2020-08-27 15:11] LABS: Anion Gap 12 mmol/L (10-20); BUN (Urea Nitrogen) 16 mg/dL (9.8-20.1); Calc. Creatinine Clearance 0 mL/min (70-130); Calcium 9.2 mg/dL (7.8-10.44); Carbon Dioxide 30 mmol/L (23-31); Chloride 101 mmol/L (98-107); Glucose 171 mg/dL (80-115); Potassium 3.3 mmol/L (3.5-5.1); Sodium 140 mmol/L (136-145)
[2020-08-27 15:16] LABS: #Basophils 0.1 10x3/uL (0.0-0.2); #Eosinphils 0.1 10x3/uL (0.0-0.5); #Monocytes 0.5 10x3/uL (0.0-1.1); %Eosinophils 1.5 % (0.0-6.0); %Lymphocytes 21.8 % (18.0-47.0); %Monocytes 8.1 % (0.0-10.0); %Neutrophils 67.1 % (40.0-75.0); Hemoglobin 13.5 g/dL (12.0-15.5); Mean Corpuscular HGB CONC 31.9 g/dL (32.0-36.0); Mean Corpuscular Hemoglobin 27.8 pg (27.0-33.0); Mean Corpuscular Volume 87.2 fl (81.6-98.3); Platelet Count 238 10x3/uL (150-450); RBC Distribution Width 13.5 % (11.5-14.5); Red Blood Cell (RBC) Count 4.85 10x6/uL (3.90-5.03)
[2020-08-28 04:20] LABS: SARS-CoV-2 PCR by NAA Not Detected (NotDetected)
== END 2020-08-27 13:43 | disposition home or self-care (01) ==
LOC: LABBT 13:42
PROVIDERS: ATTEND Internal Medicine Cardiovascular Disease
DX: Z01.812 Encounter for preprocedural laboratory examination (principal); I48.91 Unspecified atrial fibrillation; Z20.822 Contact with and (suspected) exposure to COVID-19
CPT/HCPCS: 80048; 85025; 87635; U0003; U0005

== ENCOUNTER 2020-08-30 10:01 | Day surgery (SDC) | payer BC ==
[2020-08-28 16:28] VITALS: BMI 47.2
[2020-08-30] MEDS ORDERED: PROPOFOL 200 MG/20 ML VIAL ONE (12:12)
[2020-08-30] MEDS ORDERED: Lidocaine 1% PF 5 ML VIAL ONE (12:12)
== END 2020-08-30 14:15 | disposition home or self-care (01) ==
LOC: SDC 10:01
PROVIDERS: ATTEND Internal Medicine Cardiovascular Disease
PROC: 5A2204Z Restoration of Cardiac Rhythm, Single (ICD-10-PCS; principal; 2020-08-30)
DX: I48.0 Paroxysmal atrial fibrillation (principal); I42.0 Dilated cardiomyopathy; I11.0 Hypertensive heart disease with heart failure; I50.9 Heart failure, unspecified; Z79.899 Other long term (current) drug therapy; Z86.16 Personal history of COVID-19
CPT/HCPCS: 92960; 93005; 93010; J2704

== ENCOUNTER 2021-09-30 01:12 | Emergency (ER) | payer MEDICARE, SELFPAY ==
[2021-09-30 01:53] LABS: #Eosinphils 0.1 thou/uL (0.0-0.7); #Lymphocytes 1.5 thou/uL (1.20-3.40); #Monocytes 0.6 thou/uL (0.11-0.59); #Neutrophils 4.2 thou/uL (1.40-6.50); %Eosinophils 1.8 % (0.0-10.0); %Lymphocytes 23.2 % (21.0-51.0); %Monocytes 8.6 % (0.0-10.0); %Neutrophils 66.5 % (42.0-75.0); Hemoglobin 15.2 g/dL (12.0-16.0); Mean Corpuscular HGB CONC 33.9 g/dL (32.0-36.0); Mean Corpuscular Hemoglobin 30.2 pg (27.0-31.0); Mean Corpuscular Volume 89.1 fL (78.0-98.0); Mean Platelet Volume 8.8 fL (7.4-10.4); Platelet Count 273 thou/uL (130-400); Red Blood Cell (RBC) Count 5.04 mill/uL (4.20-5.40); White Blood Cell (WBC) Count 6.4 thou/uL (4.8-10.8)
[2021-09-30 02:13] LABS: ALT (SGPT) 30 U/L (8-55); AST (SGOT) 18 U/L (5-34); Albumin 4.2 g/dL (3.4-4.8); Alkaline Phosphatase 148 U/L (40-110); Anion Gap 15 mmol/L (10-20); BUN (Urea Nitrogen) 15 mg/dL (9.8-20.1); Bilirubin, Total 0.5 mg/dL (0.2-1.2); Calc. Creatinine Clearance 0 mL/min (70-130); Calcium 9.3 mg/dL (7.8-10.44); Carbon Dioxide 26 mmol/L (23-31); Chloride 103 mmol/L (98-107); Globulin 3.2 g/dL (2.4-3.5); Glucose 177 mg/dL (80-115); Potassium 3.8 mmol/L (3.5-5.1); Protein, Total 7.4 g/dL (5.8-8.1); Sodium 140 mmol/L (136-145)
== END 2021-09-30 02:54 | disposition home or self-care (01) ==
LOC: ERS 01:12
DX: R07.2 Precordial pain (principal); R06.02 Shortness of breath; I11.0 Hypertensive heart disease with heart failure; I50.9 Heart failure, unspecified; E11.9 Type 2 diabetes mellitus without complications; I48.91 Unspecified atrial fibrillation; M19.90 Unspecified osteoarthritis, unspecified site; Z79.01 Long term (current) use of anticoagulants; Z79.899 Other long term (current) drug therapy
CPT/HCPCS: 36415; 71045; 80053; 83880; 84484; 85025; 93005

== ENCOUNTER 2021-10-15 05:39 | Emergency (ER) | payer MEDICARE ==
[2021-10-15 06:13] LABS: #Basophils 0.1 thou/uL (0.0-0.2); #Eosinphils 0.1 thou/uL (0.0-0.7); #Lymphocytes 1.9 thou/uL (1.20-3.40); #Monocytes 0.6 thou/uL (0.11-0.59); #Neutrophils 3.7 thou/uL (1.40-6.50); %Basophils 0.9 % (0.0-1.0); %Eosinophils 2.1 % (0.0-10.0); %Lymphocytes 30.1 % (21.0-51.0); %Monocytes 9.9 % (0.0-10.0); %Neutrophils 56.9 % (42.0-75.0); Hemoglobin 13.5 g/dL (12.0-16.0); Mean Corpuscular HGB CONC 33.9 g/dL (32.0-36.0); Mean Corpuscular Hemoglobin 30.1 pg (27.0-31.0); Platelet Count 270 thou/uL (130-400); Red Blood Cell (RBC) Count 4.47 mill/uL (4.20-5.40); White Blood Cell (WBC) Count 6.4 thou/uL (4.8-10.8)
[2021-10-15 06:35] LABS: ALT (SGPT) 107 U/L (8-55); AST (SGOT) 84 U/L (5-34); Albumin 3.9 g/dL (3.4-4.8); Alkaline Phosphatase 152 U/L (40-110); Anion Gap 14 mmol/L (10-20); BUN (Urea Nitrogen) 12 mg/dL (9.8-20.1); Bilirubin, Total 0.9 mg/dL (0.2-1.2); Calc. Creatinine Clearance 0 mL/min (70-130); Calcium 8.9 mg/dL (7.8-10.44); Carbon Dioxide 29 mmol/L (23-31); Chloride 103 mmol/L (98-107); Globulin 3.5 g/dL (2.4-3.5); Glucose 160 mg/dL (80-115); Potassium 3.6 mmol/L (3.5-5.1); Protein, Total 7.4 g/dL (5.8-8.1); Sodium 142 mmol/L (136-145)
[2021-10-15] MEDS ORDERED: Ondansetron PF 4 MG/2 ML Vial ONE (07:19)
[2021-10-15 08:51] LABS: Troponin I Less than 0.010 ng/mL (< 0.028)
== END 2021-10-15 09:27 | disposition home or self-care (01) ==
LOC: ERS 05:39
DX: I48.91 Unspecified atrial fibrillation (principal); E11.9 Type 2 diabetes mellitus without complications; I11.0 Hypertensive heart disease with heart failure; I50.9 Heart failure, unspecified; M19.90 Unspecified osteoarthritis, unspecified site; Z79.01 Long term (current) use of anticoagulants; Z79.899 Other long term (current) drug therapy
CPT/HCPCS: 36415; 71045; 80053; 83880; 84484; 85025; 93005; 96374; J2405

== ENCOUNTER 2021-10-18 16:18 | Outpatient (CLI) | payer MEDICARE ==
[2021-10-18 17:04] LABS: #Basophils 0.1 10x3/uL (0.0-0.2); #Eosinphils 0.1 10x3/uL (0.0-0.5); #Monocytes 0.5 10x3/uL (0.0-1.1); #Neutrophils 4.7 10x3/uL (1.5-8.4); %Eosinophils 1.3 % (0.0-6.0); %Lymphocytes 19.5 % (18.0-47.0); %Monocytes 7.7 % (0.0-10.0); %Neutrophils 70.1 % (40.0-75.0); Hemoglobin 13.5 g/dL (12.0-15.5); Mean Corpuscular HGB CONC 33.9 g/dL (32.0-36.0); Mean Corpuscular Hemoglobin 29.2 pg (27.0-33.0); Mean Platelet Volume 11.2 fl (7.4-10.4); Platelet Count 271 10x3/uL (150-450); RBC Distribution Width 12.9 % (11.5-14.5); Red Blood Cell (RBC) Count 4.63 10x6/uL (3.90-5.03); White Blood Cell (WBC) Count 6.8 10x3/uL (3.5-10.5)
[2021-10-18 17:27] LABS: Anion Gap 14 mmol/L (10-20); BUN (Urea Nitrogen) 15 mg/dL (9.8-20.1); Calc. Creatinine Clearance 0 mL/min (70-130); Calcium 9.2 mg/dL (7.8-10.44); Carbon Dioxide 30 mmol/L (23-31); Chloride 101 mmol/L (98-107); Glucose 139 mg/dL (80-115); Potassium 3.9 mmol/L (3.5-5.1); Sodium 141 mmol/L (136-145)
[2021-10-19 00:11] LABS: SARS-CoV-2 PCR by NAA Not Detected (NotDetected)
== END 2021-10-18 16:19 | disposition home or self-care (01) ==
LOC: LABBT 16:18
PROVIDERS: ATTEND Internal Medicine Cardiovascular Disease
DX: Z01.818 Encounter for other preprocedural examination (principal); I48.91 Unspecified atrial fibrillation; Z20.822 Contact with and (suspected) exposure to COVID-19
CPT/HCPCS: 80048; 85025; 93005; U0003; U0005; 93010

== ENCOUNTER 2021-10-23 10:28 | Day surgery (SDC) | payer MEDICARE ==
[2021-10-22 12:54] VITALS: BMI 51.3
[2021-10-23] MEDS ORDERED: PROPOFOL 200 MG/20 ML VIAL ONE (12:41)
== END 2021-10-23 14:14 | disposition home or self-care (01) ==
LOC: CCL 10:28
PROVIDERS: ATTEND Internal Medicine Cardiovascular Disease
PROC: 5A2204Z Restoration of Cardiac Rhythm, Single (ICD-10-PCS; principal; 2021-10-23)
DX: I48.0 Paroxysmal atrial fibrillation (principal); I11.0 Hypertensive heart disease with heart failure; I50.9 Heart failure, unspecified; I42.0 Dilated cardiomyopathy; Z86.16 Personal history of COVID-19; Z79.01 Long term (current) use of anticoagulants; Z79.899 Other long term (current) drug therapy
CPT/HCPCS: 92960; 93005; 93010; J2704

== ENCOUNTER 2021-11-03 23:40 | Emergency (ER) | payer MEDICARE ==
[2021-11-04 00:08] LABS: #Basophils 0.1 thou/uL (0.0-0.2); #Eosinphils 0.1 thou/uL (0.0-0.7); #Lymphocytes 1.7 thou/uL (1.20-3.40); #Monocytes 0.6 thou/uL (0.11-0.59); #Neutrophils 4.7 thou/uL (1.40-6.50); %Basophils 0.8 % (0.0-1.0); %Eosinophils 1.5 % (0.0-10.0); %Lymphocytes 24.1 % (21.0-51.0); %Neutrophils 65.7 % (42.0-75.0); Hemoglobin 13.3 g/dL (12.0-16.0); Mean Corpuscular HGB CONC 32.9 g/dL (32.0-36.0); Mean Corpuscular Hemoglobin 29.9 pg (27.0-31.0); Mean Corpuscular Volume 90.9 fL (78.0-98.0); Mean Platelet Volume 8.9 fL (7.4-10.4); Platelet Count 290 thou/uL (130-400); RBC Distribution Width 12.3 % (11.5-14.5); Red Blood Cell (RBC) Count 4.46 mill/uL (4.20-5.40); White Blood Cell (WBC) Count 7.1 thou/uL (4.8-10.8)
[2021-11-04 00:32] LABS: ALT (SGPT) 51 U/L (8-55); AST (SGOT) 25 U/L (5-34); Albumin 3.9 g/dL (3.4-4.8); Alkaline Phosphatase 137 U/L (40-110); Anion Gap 11 mmol/L (10-20); BUN (Urea Nitrogen) 19 mg/dL (9.8-20.1); Bilirubin, Total 0.4 mg/dL (0.2-1.2); Calc. Creatinine Clearance 0 mL/min (70-130); Calcium 9.1 mg/dL (7.8-10.44); Carbon Dioxide 35 mmol/L (23-31); Chloride 100 mmol/L (98-107); Globulin 3.8 g/dL (2.4-3.5); Glucose 143 mg/dL (80-115); Potassium 4.3 mmol/L (3.5-5.1); Protein, Total 7.7 g/dL (5.8-8.1); Sodium 142 mmol/L (136-145)
== END 2021-11-04 00:59 | disposition home or self-care (01) ==
LOC: ERS 23:40
DX: R07.89 Other chest pain (principal); Z79.899 Other long term (current) drug therapy; Z79.01 Long term (current) use of anticoagulants; Z79.84 Long term (current) use of oral hypoglycemic drugs; E11.9 Type 2 diabetes mellitus without complications; M19.90 Unspecified osteoarthritis, unspecified site; I11.0 Hypertensive heart disease with heart failure; I50.9 Heart failure, unspecified; I48.91 Unspecified atrial fibrillation
CPT/HCPCS: 71045; 80053; 84484; 85025; 93005

== ENCOUNTER 2021-11-21 22:41 | Emergency (ER) | payer MEDICARE ==
[2021-11-21 23:13] LABS: #Eosinphils 0.1 thou/uL (0.0-0.7); #Lymphocytes 1.4 thou/uL (1.20-3.40); #Monocytes 0.5 thou/uL (0.11-0.59); #Neutrophils 5.7 thou/uL (1.40-6.50); %Basophils 0.5 % (0.0-1.0); %Eosinophils 1.3 % (0.0-10.0); %Lymphocytes 17.9 % (21.0-51.0); %Monocytes 6.6 % (0.0-10.0); %Neutrophils 73.6 % (42.0-75.0); Hemoglobin 14.4 g/dL (12.0-16.0); Mean Corpuscular HGB CONC 33.2 g/dL (32.0-36.0); Mean Corpuscular Hemoglobin 29.7 pg (27.0-31.0); Mean Corpuscular Volume 89.3 fL (78.0-98.0); Mean Platelet Volume 8.6 fL (7.4-10.4); Platelet Count 266 thou/uL (130-400); RBC Distribution Width 12.3 % (11.5-14.5); Red Blood Cell (RBC) Count 4.84 mill/uL (4.20-5.40); White Blood Cell (WBC) Count 7.7 thou/uL (4.8-10.8)
[2021-11-21 23:28] LABS: ALT (SGPT) 25 U/L (8-55); AST (SGOT) 19 U/L (5-34); Albumin 3.8 g/dL (3.4-4.8); Alkaline Phosphatase 128 U/L (40-110); Anion Gap 16 mmol/L (10-20); BUN (Urea Nitrogen) 16 mg/dL (9.8-20.1); Bilirubin, Total 0.6 mg/dL (0.2-1.2); Calc. Creatinine Clearance 0 mL/min (70-130); Calcium 9.2 mg/dL (7.8-10.44); Carbon Dioxide 28 mmol/L (23-31); Chloride 100 mmol/L (98-107); Globulin 3.7 g/dL (2.4-3.5); Glucose 223 mg/dL (80-115); Potassium 4.5 mmol/L (3.5-5.1); Protein, Total 7.5 g/dL (5.8-8.1); Sodium 139 mmol/L (136-145)
== END 2021-11-22 00:44 | disposition home or self-care (01) ==
LOC: ERS 22:41
DX: R07.89 Other chest pain (principal); R51.9 Headache, unspecified; R11.0 Nausea; E11.9 Type 2 diabetes mellitus without complications; I11.0 Hypertensive heart disease with heart failure; I50.9 Heart failure, unspecified; I48.91 Unspecified atrial fibrillation; Z79.01 Long term (current) use of anticoagulants; Z79.84 Long term (current) use of oral hypoglycemic drugs; Z79.899 Other long term (current) drug therapy
CPT/HCPCS: 36415; 71045; 80053; 84484; 85025; 93005

== ENCOUNTER 2022-06-21 02:59 | Emergency (ER) | payer MEDICARE ==
[2022-06-21] MEDS ORDERED: Ondansetron PF 4 MG/2 ML Vial ONE ×2 (03:23→04:29)
[2022-06-21 03:40] LABS: #Eosinphils 0.1 thou/uL (0.0-0.7); #Lymphocytes 0.8 thou/uL (1.20-3.40); #Monocytes 0.7 thou/uL (0.11-0.59); #Neutrophils 4.2 thou/uL (1.40-6.50); %Basophils 0.1 % (0.0-1.0); %Eosinophils 0.9 % (0.0-10.0); %Lymphocytes 14.4 % (21.0-51.0); %Monocytes 12.4 % (0.0-10.0); %Neutrophils 72.3 % (42.0-75.0); Hemoglobin 14.2 g/dL (12.0-16.0); Mean Corpuscular HGB CONC 33.5 g/dL (32.0-36.0); Mean Corpuscular Hemoglobin 30.2 pg (27.0-31.0); Mean Corpuscular Volume 90.1 fl (78.0-98.0); Mean Platelet Volume 9.2 fL (7.4-10.4); Platelet Count 205 10x3/uL (130-400); RBC Distribution Width 12.2 % (11.5-14.5); Red Blood Cell (RBC) Count 4.69 mill/uL (4.20-5.40); White Blood Cell (WBC) Count 5.8 10x3/uL (4.8-10.8)
[2022-06-21 03:45] LABS: BHCG - Serum Negative (NEGATIVE); Pregs Control Background? CLEAR/WHITE (CLR/WHITE); Pregs Control Bar Appear? YES (CONTROL BAR)
[2022-06-21 03:55] LABS: ALT (SGPT) 62 U/L (8-55); AST (SGOT) 50 U/L (5-34); Alkaline Phosphatase 116 U/L (40-110); Anion Gap 11 mmol/L (10-20); BUN (Urea Nitrogen) 11 mg/dL (9.8-20.1); Bilirubin, Total 0.7 mg/dL (0.2-1.2); Calc. Creatinine Clearance 0 mL/min (70-130); Calcium 9.1 mg/dL (7.8-10.44); Carbon Dioxide 28 mmol/L (23-31); Chloride 106 mmol/L (98-107); Estimated GFR 49; Globulin 3.7 g/dL (2.4-3.5); Glucose 182 mg/dL (80-115); Potassium 3.2 mmol/L (3.5-5.1); Protein, Total 7.7 g/dL (5.8-8.1); Sodium 142 mmol/L (136-145)
[2022-06-21] MEDS ORDERED: Metoclopramide HCl 10 MG/2 ML VIAL ONE (06:03)
== END 2022-06-21 06:57 | disposition home or self-care (01) ==
LOC: ERS 02:59
DX: I48.20 Chronic atrial fibrillation, unspecified (principal); E86.0 Dehydration; I11.0 Hypertensive heart disease with heart failure; I50.9 Heart failure, unspecified; E11.9 Type 2 diabetes mellitus without complications
CPT/HCPCS: 36415; 71045; 80053; 83735; 83880; 84443; 84484; 84703; 85025; 93005; 96374; 96375; 96376; J2405; J2765

== ENCOUNTER 2022-07-30 20:21 | Emergency (ER) | payer MEDICARE ==
[2022-07-30 21:01] LABS: #Eosinphils 0.1 thou/uL (0.0-0.7); #Lymphocytes 1.5 thou/uL (1.20-3.40); #Monocytes 0.5 thou/uL (0.11-0.59); %Basophils 0.5 % (0.0-1.0); %Eosinophils 2.1 % (0.0-10.0); %Lymphocytes 24.9 % (21.0-51.0); %Monocytes 8.3 % (0.0-10.0); %Neutrophils 64.3 % (42.0-75.0); Mean Corpuscular HGB CONC 34.2 g/dL (32.0-36.0); Mean Corpuscular Hemoglobin 30.6 pg (27.0-31.0); Mean Corpuscular Volume 89.4 fl (78.0-98.0); Mean Platelet Volume 9.2 fL (7.4-10.4); Platelet Count 237 10x3/uL (130-400); RBC Distribution Width 12.3 % (11.5-14.5); Red Blood Cell (RBC) Count 4.56 mill/uL (4.20-5.40); White Blood Cell (WBC) Count 6.2 10x3/uL (4.8-10.8)
[2022-07-30 21:23] LABS: ALT (SGPT) 29 U/L (8-55); AST (SGOT) 16 U/L (5-34); Alkaline Phosphatase 145 U/L (40-110); Anion Gap 12 mmol/L (10-20); BUN (Urea Nitrogen) 16 mg/dL (9.8-20.1); Bilirubin, Total 0.4 mg/dL (0.2-1.2); Calc. Creatinine Clearance 0 mL/min (70-130); Calcium 8.9 mg/dL (7.8-10.44); Carbon Dioxide 33 mmol/L (23-31); Chloride 101 mmol/L (98-107); Estimated GFR 39; Globulin 3.6 g/dL (2.4-3.5); Glucose 188 mg/dL (80-115); Protein, Total 7.6 g/dL (5.8-8.1); Sodium 142 mmol/L (136-145)
== END 2022-07-30 23:22 | disposition left against medical advice (07) ==
LOC: ERS 20:21
DX: Z53.29 Procedure and treatment not carried out because of patient's decision for other reasons (principal)
CPT/HCPCS: 71045; 80053; 83880; 84484; 85025; 93005

== ENCOUNTER 2022-09-18 06:28 | Emergency (ER) | payer MEDICARE ==
[2022-09-18 07:16] LABS: #Basophils 0.1 thou/uL (0.0-0.2); #Eosinphils 0.2 thou/uL (0.0-0.7); #Lymphocytes 1.8 thou/uL (1.20-3.40); #Monocytes 0.6 thou/uL (0.11-0.59); #Neutrophils 4.4 thou/uL (1.40-6.50); %Basophils 0.9 % (0.0-1.0); %Eosinophils 2.3 % (0.0-10.0); %Lymphocytes 25.4 % (21.0-51.0); %Monocytes 8.6 % (0.0-10.0); %Neutrophils 62.8 % (42.0-75.0); Mean Corpuscular HGB CONC 32.2 g/dL (32.0-36.0); Mean Corpuscular Hemoglobin 28.7 pg (27.0-31.0); Mean Corpuscular Volume 89.1 fl (78.0-98.0); Mean Platelet Volume 8.9 fL (7.4-10.4); Platelet Count 249 10x3/uL (130-400); RBC Distribution Width 12.3 % (11.5-14.5); Red Blood Cell (RBC) Count 4.87 mill/uL (4.20-5.40); White Blood Cell (WBC) Count 6.9 10x3/uL (4.8-10.8)
[2022-09-18 07:39] LABS: ALT (SGPT) 21 U/L (8-55); AST (SGOT) 21 U/L (5-34); Alkaline Phosphatase 133 U/L (40-110); Anion Gap 13 mmol/L (10-20); BUN (Urea Nitrogen) 16 mg/dL (9.8-20.1); Bilirubin, Total 0.5 mg/dL (0.2-1.2); Calc. Creatinine Clearance 0 mL/min (70-130); Calcium 9.4 mg/dL (7.8-10.44); Carbon Dioxide 25 mmol/L (23-31); Chloride 103 mmol/L (98-107); Estimated GFR 54; Globulin 3.9 g/dL (2.4-3.5); Glucose 137 mg/dL (80-115); Potassium 4.3 mmol/L (3.5-5.1); Protein, Total 7.9 g/dL (5.8-8.1); Sodium 137 mmol/L (136-145)
== END 2022-09-18 08:10 | disposition home or self-care (01) ==
LOC: ERS 06:28
DX: R06.02 Shortness of breath (principal); I11.0 Hypertensive heart disease with heart failure; I50.9 Heart failure, unspecified; Z79.01 Long term (current) use of anticoagulants
CPT/HCPCS: 71045; 80053; 83880; 84484; 85025; 93005

== ENCOUNTER 2022-10-09 16:04 | Observation (INO) | payer MEDICARE ==
[2022-10-09] MEDS ORDERED: Ondansetron PF 4 MG/2 ML Vial ONE (16:41)
[2022-10-09 16:50] LABS: #Basophils 0.1 thou/uL (0.0-0.2); #Eosinphils 0.1 thou/uL (0.0-0.7); #Lymphocytes 1.4 thou/uL (1.20-3.40); #Monocytes 0.4 thou/uL (0.11-0.59); #Neutrophils 3.7 thou/uL (1.40-6.50); %Basophils 0.9 % (0.0-1.0); %Eosinophils 1.3 % (0.0-10.0); %Lymphocytes 24.7 % (21.0-51.0); %Monocytes 7.7 % (0.0-10.0); %Neutrophils 65.4 % (42.0-75.0); Hemoglobin 13.7 g/dL (12.0-16.0); Mean Corpuscular HGB CONC 34.1 g/dL (32.0-36.0); Mean Corpuscular Hemoglobin 30.2 pg (27.0-31.0); Mean Corpuscular Volume 88.5 fl (78.0-98.0); Mean Platelet Volume 9.3 fL (7.4-10.4); Platelet Count 251 10x3/uL (130-400); RBC Distribution Width 12.5 % (11.5-14.5); Red Blood Cell (RBC) Count 4.54 mill/uL (4.20-5.40); White Blood Cell (WBC) Count 5.7 10x3/uL (4.8-10.8)
[2022-10-09 16:53] LABS: INR-International Normal Ratio 1.1; Prothrombin Time 14.3 sec (12.0-14.7)
[2022-10-09 16:56] LABS: ALT (SGPT) 71 U/L (8-55); AST (SGOT) 63 U/L (5-34); Albumin 3.8 g/dL (3.4-4.8); Alkaline Phosphatase 153 U/L (40-110); Anion Gap 14 mmol/L (10-20); BUN (Urea Nitrogen) 16 mg/dL (9.8-20.1); Bilirubin, Total 0.5 mg/dL (0.2-1.2); Calc. Creatinine Clearance 0 mL/min (70-130); Calcium 8.8 mg/dL (7.8-10.44); Carbon Dioxide 27 mmol/L (23-31); Chloride 104 mmol/L (98-107); Estimated GFR 54; Globulin 3.5 g/dL (2.4-3.5); Glucose 218 mg/dL (80-115); Potassium 3.7 mmol/L (3.5-5.1); Protein, Total 7.3 g/dL (5.8-8.1); Sodium 141 mmol/L (136-145)
[2022-10-09] MEDS ORDERED: Acetaminophen 325 MG TAB PO PRN (18:03)
[2022-10-09] MEDS ORDERED: Calcium Carbonate 500 MG ChewTAB PO PRN (18:03)
[2022-10-09 19:05] LABS: Troponin I Less than 0.010 ng/mL (< 0.028)
[2022-10-09] MEDS ORDERED: Furosemide 20 MG/2 ML VIAL SLOW IVP SCH (19:15)
[2022-10-09] MEDS ORDERED: Furosemide 20 MG/2 ML VIAL ONE (19:43)
[2022-10-09 19:44] LABS: Hemoglobin A1c 6.8 % (4.0-6.0)
[2022-10-09] MEDS: Apixaban 5 MG TAB PO SCH (20:58)
[2022-10-09] MEDS: Famotidine 20 MG TAB PO SCH (20:59)
[2022-10-09] MEDS: Amlodipine 5 MG TAB PO SCH (20:59)
[2022-10-09] MEDS: Sacubitril 49 MG/Valsartan 51 MG TABLET PO SCH (20:59)
[2022-10-09] MEDS ORDERED: Gabapentin 300 MG CAP PO SCH (21:00)
[2022-10-09 21:10] VITALS: BMI 56.2
[2022-10-09 21:39] LABS: Troponin I Less than 0.010 ng/mL (< 0.028)
[2022-10-09 22:11] LABS: SARS-CoV-2 NAA Rapid Test Not Detected (NotDetected)
[2022-10-10 04:27] LABS: #Basophils 0.1 thou/uL (0.0-0.2); #Eosinphils 0.1 thou/uL (0.0-0.7); #Lymphocytes 1.3 thou/uL (1.20-3.40); #Monocytes 0.6 thou/uL (0.11-0.59); #Neutrophils 3.4 thou/uL (1.40-6.50); %Basophils 1.3 % (0.0-1.0); %Eosinophils 1.8 % (0.0-10.0); %Lymphocytes 24.1 % (21.0-51.0); %Neutrophils 61.8 % (42.0-75.0); Mean Corpuscular HGB CONC 32.1 g/dL (32.0-36.0); Mean Corpuscular Hemoglobin 28.8 pg (27.0-31.0); Mean Corpuscular Volume 89.7 fl (78.0-98.0); Mean Platelet Volume 9.4 fL (7.4-10.4); Platelet Count 254 10x3/uL (130-400); RBC Distribution Width 12.8 % (11.5-14.5); Red Blood Cell (RBC) Count 4.53 mill/uL (4.20-5.40); White Blood Cell (WBC) Count 5.6 10x3/uL (4.8-10.8)
[2022-10-10 04:52] LABS: ALT (SGPT) 78 U/L (8-55); AST (SGOT) 71 U/L (5-34); Albumin 3.8 g/dL (3.4-4.8); Alkaline Phosphatase 150 U/L (40-110); Anion Gap 12 mmol/L (10-20); BUN (Urea Nitrogen) 17 mg/dL (9.8-20.1); Bilirubin, Total 0.4 mg/dL (0.2-1.2); Calc. Creatinine Clearance 90 mL/min (70-130); Calcium 8.7 mg/dL (7.8-10.44); Carbon Dioxide 28 mmol/L (23-31); Chloride 102 mmol/L (98-107); Estimated GFR 45; Globulin 3.3 g/dL (2.4-3.5); Glucose 184 mg/dL (80-115); Potassium 3.4 mmol/L (3.5-5.1); Protein, Total 7.1 g/dL (5.8-8.1); Sodium 139 mmol/L (136-145)
[2022-10-10 07:42] VITALS: TEMP 97.9
[2022-10-10] MEDS: Sacubitril 49 MG/Valsartan 51 MG TABLET PO SCH (08:26)
[2022-10-10] MEDS: Apixaban 5 MG TAB PO SCH (08:27)
[2022-10-10] MEDS: Famotidine 20 MG TAB PO SCH (08:27)
[2022-10-10] MEDS: Amlodipine 5 MG TAB PO SCH (08:27)
[2022-10-10] MEDS: Furosemide 40 MG TAB PO SCH ×2 (08:27→13:58)
[2022-10-10] MEDS ORDERED: Aspirin Chewable 81 MG TAB PO SCH (09:00)
[2022-10-10] MEDS ORDERED: Ondansetron ODT 4 MG TAB PO PRN (10:29)
[2022-10-10 16:33] VITALS: BP 142/73
== END 2022-10-10 16:36 | disposition home or self-care (01) ==
LOC: ERS 16:04 → 2SW 18:18
PROVIDERS: ADMIT Hospitalist; ATTEND Hospitalist
DX: R06.02 Shortness of breath (principal); I48.91 Unspecified atrial fibrillation; I13.0 Hypertensive heart and chronic kidney disease with heart failure and stage 1 through stage 4 chronic kidney disease, or unspecified chronic kidney disease; E11.22 Type 2 diabetes mellitus with diabetic chronic kidney disease; N18.9 Chronic kidney disease, unspecified; I50.9 Heart failure, unspecified; E11.65 Type 2 diabetes mellitus with hyperglycemia; K76.0 Fatty (change of) liver, not elsewhere classified; R74.01 Elevation of levels of liver transaminase levels; I34.0 Nonrheumatic mitral (valve) insufficiency; E66.01 Morbid (severe) obesity due to excess calories; Z68.43 Body mass index [BMI] 50.0-59.9, adult; Z79.01 Long term (current) use of anticoagulants; Z79.899 Other long term (current) drug therapy; Z20.822 Contact with and (suspected) exposure to COVID-19
CPT/HCPCS: 71045; 80053 ×2; 82962; 83036; 83880; 84484 ×2; 85025 ×2; 85610; 85730; 93005; 93306; 94760; 96374; 99285; U0002; 36415; 36416; G0378; J1940; J2405; Q0162

== ENCOUNTER 2022-10-14 00:19 | Emergency (ER) | payer MEDICARE ==
[2022-10-14 01:01] LABS: #Eosinphils 0.1 thou/uL (0.0-0.7); #Monocytes 0.7 thou/uL (0.11-0.59); %Basophils 0.6 % (0.0-1.0); %Lymphocytes 18.1 % (21.0-51.0); %Monocytes 9.3 % (0.0-10.0); %Neutrophils 70.7 % (42.0-75.0); Mean Corpuscular Hemoglobin 27.9 pg (27.0-31.0); Mean Corpuscular Volume 87.1 fl (78.0-98.0); Mean Platelet Volume 11.4 fL (7.4-10.4); Platelet Count 250 10x3/uL (130-400); RBC Distribution Width 13.3 % (11.5-14.5); Red Blood Cell (RBC) Count 4.66 mill/uL (4.20-5.40)
[2022-10-14 01:27] LABS: ALT (SGPT) 51 U/L (8-55); AST (SGOT) 32 U/L (5-34); Alkaline Phosphatase 154 U/L (40-110); Anion Gap 14 mmol/L (10-20); BUN (Urea Nitrogen) 15 mg/dL (9.8-20.1); Bilirubin, Total 0.5 mg/dL (0.2-1.2); Calc. Creatinine Clearance 0 mL/min (70-130); Calcium 9.1 mg/dL (7.8-10.44); Carbon Dioxide 27 mmol/L (23-31); Chloride 104 mmol/L (98-107); Estimated GFR 61; Globulin 3.1 g/dL (2.4-3.5); Glucose 151 mg/dL (80-115); Potassium 3.7 mmol/L (3.5-5.1); Protein, Total 7.1 g/dL (5.8-8.1); Sodium 141 mmol/L (136-145)
== END 2022-10-14 01:10 | disposition left against medical advice (07) ==
LOC: ERS 00:19
DX: Z53.21 Procedure and treatment not carried out due to patient leaving prior to being seen by health care provider (principal)
CPT/HCPCS: 36415; 80053; 84484; 85025; 93005

== ENCOUNTER 2022-10-14 15:13 | Inpatient (IN) | payer MEDICARE ==
[2022-10-14 15:50] LABS: #Eosinphils 0.1 thou/uL (0.0-0.7); #Monocytes 0.6 thou/uL (0.11-0.59); %Basophils 0.7 % (0.0-1.0); %Eosinophils 1.6 % (0.0-10.0); %Lymphocytes 21.4 % (21.0-51.0); %Monocytes 10.1 % (0.0-10.0); %Neutrophils 65.9 % (42.0-75.0); Hemoglobin 13.9 g/dL (12.0-16.0); Mean Corpuscular HGB CONC 31.7 g/dL (32.0-36.0); Mean Corpuscular Hemoglobin 28.1 pg (27.0-31.0); Mean Corpuscular Volume 88.7 fl (78.0-98.0); Mean Platelet Volume 11.2 fL (7.4-10.4); Platelet Count 267 10x3/uL (130-400); RBC Distribution Width 13.3 % (11.5-14.5); Red Blood Cell (RBC) Count 4.95 mill/uL (4.20-5.40); White Blood Cell (WBC) Count 6.1 10x3/uL (4.8-10.8)
[2022-10-14] MEDS ORDERED: Furosemide 40 MG/4 ML VIAL ONE (16:04)
[2022-10-14] MEDS ORDERED: Ondansetron PF 4 MG/2 ML Vial ONE ×2 (16:04→18:22)
[2022-10-14 16:18] LABS: ALT (SGPT) 45 U/L (8-55); AST (SGOT) 28 U/L (5-34); Albumin 4.1 g/dL (3.4-4.8); Alkaline Phosphatase 155 U/L (40-110); Anion Gap 14 mmol/L (10-20); BUN (Urea Nitrogen) 13 mg/dL (9.8-20.1); Bilirubin, Total 0.6 mg/dL (0.2-1.2); Calc. Creatinine Clearance 0 mL/min (70-130); Calcium 9.4 mg/dL (7.8-10.44); Carbon Dioxide 25 mmol/L (23-31); Chloride 103 mmol/L (98-107); Estimated GFR 57; Globulin 3.7 g/dL (2.4-3.5); Glucose 225 mg/dL (80-115); Potassium 3.7 mmol/L (3.5-5.1); Protein, Total 7.8 g/dL (5.8-8.1); Sodium 138 mmol/L (136-145)
[2022-10-14 17:02] LABS: Lipase 19 U/L (8-78); Magnesium 1.4 mg/dL (1.6-2.6)
[2022-10-14] MEDS ORDERED: Senokot S 8.6-50 MG TAB PO PRN (18:41)
[2022-10-14] MEDS ORDERED: Acetaminophen 325 MG TAB PO PRN (18:41)
[2022-10-14] MEDS ORDERED: Calcium Carbonate 500 MG ChewTAB PO PRN (18:41)
[2022-10-14 18:44] LABS: Troponin I Less than 0.010 ng/mL (< 0.028)
[2022-10-14] MEDS ORDERED: hydrALAZINE 20 MG/ML VIAL SLOW IVP PRN (18:52)
[2022-10-14] MEDS ORDERED: Magnesium Sulfate 3 GM in Sodium Chloride 0.9% 100 ML IVPB SCH (19:15)
[2022-10-14] MEDS ORDERED: Dextrose 50% Abboject 50 ML SYRINGE SLOW IVP PRN (21:46)
[2022-10-14] MEDS ORDERED: Dextrose 5% in Water 1,000 ML IV PRN (21:46)
[2022-10-14] MEDS: Sacubitril 49 MG/Valsartan 51 MG TABLET PO SCH (21:51)
[2022-10-14] MEDS: Apixaban 5 MG TAB PO SCH (21:52)
[2022-10-14 22:03] VITALS: BMI 54.5
[2022-10-14 22:22] LABS: Troponin I Less than 0.010 ng/mL (< 0.028)
[2022-10-15 05:00] LABS: #Basophils 0.1 thou/uL (0.0-0.2); #Eosinphils 0.1 thou/uL (0.0-0.7); #Monocytes 0.8 thou/uL (0.11-0.59); #Neutrophils 5.5 thou/uL (1.40-6.50); %Basophils 0.7 % (0.0-1.0); %Eosinophils 1.6 % (0.0-10.0); %Lymphocytes 18.3 % (21.0-51.0); %Monocytes 10.5 % (0.0-10.0); %Neutrophils 68.5 % (42.0-75.0); Hemoglobin 13.3 g/dL (12.0-16.0); Mean Corpuscular HGB CONC 31.1 g/dL (32.0-36.0); Mean Corpuscular Hemoglobin 27.8 pg (27.0-31.0); Mean Corpuscular Volume 89.4 fl (78.0-98.0); Mean Platelet Volume 11.1 fL (7.4-10.4); Platelet Count 290 10x3/uL (130-400); RBC Distribution Width 13.3 % (11.5-14.5); Red Blood Cell (RBC) Count 4.79 mill/uL (4.20-5.40)
[2022-10-15 05:27] LABS: ALT (SGPT) 38 U/L (8-55); AST (SGOT) 29 U/L (5-34); Albumin 3.8 g/dL (3.4-4.8); Alkaline Phosphatase 144 U/L (40-110); Anion Gap 16 mmol/L (10-20); BUN (Urea Nitrogen) 15 mg/dL (9.8-20.1); Bilirubin, Total 0.5 mg/dL (0.2-1.2); Calc. Creatinine Clearance 105 mL/min (70-130); Calcium 8.9 mg/dL (7.8-10.44); Carbon Dioxide 22 mmol/L (23-31); Cardiac Risk 6.3 (Less than 4.5); Chloride 102 mmol/L (98-107); Cholesterol 190 mg/dl (< 200 Desired); Estimated GFR 56; Globulin 3.8 g/dL (2.4-3.5); Glucose 142 mg/dL (80-115); HDL Cholesterol 30 mg/dL (>60 Neg Risk); LDL Cholesterol, Calculated 105 mg/dL; Magnesium 2.6 mg/dL (1.6-2.6); Potassium 3.7 mmol/L (3.5-5.1); Protein, Total 7.6 g/dL (5.8-8.1); Sodium 136 mmol/L (136-145); Triglycerides 273 mg/dL (Less than 150)
[2022-10-15 05:55] LABS: Hemoglobin A1c 6.8 % (4.0-6.0)
[2022-10-15] MEDS: Furosemide 40 MG/4 ML VIAL SLOW IVP SCH ×2 (06:02→15:23)
[2022-10-15] MEDS: Ondansetron PF 4 MG/2 ML Vial IVP PRN (06:38)
[2022-10-15] MEDS: Sacubitril 49 MG/Valsartan 51 MG TABLET PO SCH ×2 (09:05→19:57)
[2022-10-15] MEDS: Aspirin Chewable 81 MG TAB PO SCH (09:05)
[2022-10-15] MEDS: Amlodipine 10 MG TAB PO SCH (09:05)
[2022-10-15] MEDS: Apixaban 5 MG TAB PO SCH ×2 (09:05→19:57)
[2022-10-15] MEDS ORDERED: Lorazepam 2 MG/ML VIAL SLOW IVP SCH (10:00)
[2022-10-15 10:41] LABS: Amphetamine Not Detected (NotDetected); Barbiturates Screen Not Detected (NotDetected); Benzodiazepine Screen Not Detected (NotDetected); Cocaine Metabolite Screen Not Detected (NotDetected); Methadone Not Detected (NotDetected); Methamphetamine Not Detected (NotDetected); Opiate Screen Detected (NotDetected); Oxycodone Screen Not Detected (NotDetected); Phencyclidine (PCP) Not Detected (NotDetected); THC/Cannabinoid Screen Not Detected (NotDetected); Tricyclic Screen Not Detected (NotDetected)
[2022-10-15] MEDS: Atorvastatin Calcium 40 MG TAB PO SCH (19:57)
[2022-10-16] MEDS: HumaLOG 300 UNITS/3 ML VIAL SC PRN (05:50)
[2022-10-16] MEDS: Furosemide 40 MG/4 ML VIAL SLOW IVP SCH ×2 (05:50→15:11)
[2022-10-16] MEDS: Apixaban 5 MG TAB PO SCH ×2 (08:01→20:06)
[2022-10-16] MEDS: Aspirin Chewable 81 MG TAB PO SCH (08:01)
[2022-10-16] MEDS: Sacubitril 49 MG/Valsartan 51 MG TABLET PO SCH ×2 (08:01→20:05)
[2022-10-16] MEDS: Amlodipine 10 MG TAB PO SCH (08:01)
[2022-10-16] MEDS ORDERED: Lorazepam 2 MG/ML VIAL SLOW IVP SCH ×2 (09:30→09:45)
[2022-10-16] MEDS: Ondansetron PF 4 MG/2 ML Vial IVP PRN (11:56)
[2022-10-16] MEDS ORDERED: Amiodarone 200 MG TAB PO SCH (14:45)
[2022-10-16] MEDS: Atorvastatin Calcium 40 MG TAB PO SCH (20:05)
[2022-10-16] MEDS: Amiodarone 200 MG TAB PO SCH (20:06)
[2022-10-17] MEDS: Ondansetron PF 4 MG/2 ML Vial IVP PRN ×2 (06:13→14:28)
[2022-10-17] MEDS: Furosemide 40 MG/4 ML VIAL SLOW IVP SCH ×3 (06:20→14:28)
[2022-10-17] MEDS ORDERED: PHENYLEPHRINE-NS 100 MCG/ML 10 ML SYRINGE ONE (08:46)
[2022-10-17] MEDS ORDERED: PROPOFOL 200 MG/20 ML VIAL ONE (08:46)
[2022-10-17] MEDS: Amiodarone 200 MG TAB PO SCH (10:19)
[2022-10-17] MEDS: Aspirin Chewable 81 MG TAB PO SCH (10:20)
[2022-10-17] MEDS: Amlodipine 10 MG TAB PO SCH (10:20)
[2022-10-17] MEDS: Sacubitril 49 MG/Valsartan 51 MG TABLET PO SCH (10:20)
[2022-10-17] MEDS: Apixaban 5 MG TAB PO SCH (10:20)
[2022-10-17 11:48] VITALS: BP 139/80; TEMP 98.6
[2022-10-17] MEDS: HumaLOG 300 UNITS/3 ML VIAL SC PRN (14:27)
== END 2022-10-17 15:40 | disposition home or self-care (01) | DRG 291 ==
LOC: SUATTDRO 15:13 → ERS 15:13 → 2SW 18:41 → OBSVTOIN 10-15 17:09
PROVIDERS: ADMIT Internal Medicine; ATTEND Family Medicine
PROC: 5A2204Z Restoration of Cardiac Rhythm, Single (ICD-10-PCS; principal; 2022-10-17)
DX: I13.0 Hypertensive heart and chronic kidney disease with heart failure and stage 1 through stage 4 chronic kidney disease, or unspecified chronic kidney disease (principal); I50.33 Acute on chronic diastolic (congestive) heart failure; Z68.43 Body mass index [BMI] 50.0-59.9, adult; I48.19 Other persistent atrial fibrillation; I48.0 Paroxysmal atrial fibrillation; E66.9 Obesity, unspecified; E11.22 Type 2 diabetes mellitus with diabetic chronic kidney disease; G89.29 Other chronic pain; N18.30 Chronic kidney disease, stage 3 unspecified; Z90.710 Acquired absence of both cervix and uterus; Z79.01 Long term (current) use of anticoagulants; Z79.899 Other long term (current) drug therapy; Z79.82 Long term (current) use of aspirin; Z90.49 Acquired absence of other specified parts of digestive tract; Z98.890 Other specified postprocedural states
CPT/HCPCS: 36415; 36416; 71045; 78452; 80053; 80061; 80306; 83036; 83690; 83735; 83880; 85025; 85379; 92960; 93005; 93010; 93017; 93798; 96374; 96375; 96376; A9500; G0378; J0153; J1815; J1940; J2060; J2405; J3475; J3490

== ENCOUNTER 2022-10-20 00:12 | Emergency (ER) | payer MEDICARE ==
[2022-10-20 00:55] LABS: #Basophils 0.1 thou/uL (0.0-0.2); #Eosinphils 0.2 thou/uL (0.0-0.7); #Monocytes 0.6 thou/uL (0.11-0.59); #Neutrophils 4.8 thou/uL (1.40-6.50); %Eosinophils 3.3 % (0.0-10.0); %Lymphocytes 20.1 % (21.0-51.0); %Monocytes 8.5 % (0.0-10.0); %Neutrophils 66.7 % (42.0-75.0); Hemoglobin 11.9 g/dL (12.0-16.0); Mean Corpuscular HGB CONC 31.1 g/dL (32.0-36.0); Mean Corpuscular Hemoglobin 27.9 pg (27.0-31.0); Mean Corpuscular Volume 89.9 fl (78.0-98.0); Mean Platelet Volume 11.5 fL (7.4-10.4); Platelet Count 264 10x3/uL (130-400); RBC Distribution Width 13.3 % (11.5-14.5); Red Blood Cell (RBC) Count 4.26 mill/uL (4.20-5.40); White Blood Cell (WBC) Count 7.2 10x3/uL (4.8-10.8)
[2022-10-20 01:28] LABS: ALT (SGPT) 25 U/L (8-55); AST (SGOT) 21 U/L (5-34); Albumin 3.8 g/dL (3.4-4.8); Alkaline Phosphatase 119 U/L (40-110); Anion Gap 15 mmol/L (10-20); BUN (Urea Nitrogen) 20 mg/dL (9.8-20.1); Bilirubin, Total 0.3 mg/dL (0.2-1.2); Calc. Creatinine Clearance 0 mL/min (70-130); Calcium 9.6 mg/dL (7.8-10.44); Carbon Dioxide 28 mmol/L (23-31); Chloride 102 mmol/L (98-107); Estimated GFR 45; Globulin 3.3 g/dL (2.4-3.5); Glucose 182 mg/dL (80-115); Potassium 4.4 mmol/L (3.5-5.1); Protein, Total 7.1 g/dL (5.8-8.1); Sodium 141 mmol/L (136-145)
[2022-10-20 02:38] LABS: Lipase 20 U/L (8-78)
== END 2022-10-20 02:46 | disposition left against medical advice (07) ==
LOC: ERS 00:12
DX: Z53.29 Procedure and treatment not carried out because of patient's decision for other reasons (principal); I13.0 Hypertensive heart and chronic kidney disease with heart failure and stage 1 through stage 4 chronic kidney disease, or unspecified chronic kidney disease; I50.9 Heart failure, unspecified; N18.2 Chronic kidney disease, stage 2 (mild); E11.22 Type 2 diabetes mellitus with diabetic chronic kidney disease
CPT/HCPCS: 36415; 80053; 83690; 85025

== ENCOUNTER 2022-10-20 10:12 | Emergency (ER) | payer MEDICARE ==
[~2022-10-20 10:12] MED LIST: Iopamidol-370 76% 500 ML MDV (1 ML CHARGE) ONE
[2022-10-20 12:23] LABS: #Basophils 0.1 thou/uL (0.0-0.2); #Eosinphils 0.3 thou/uL (0.0-0.7); #Monocytes 0.6 thou/uL (0.11-0.59); #Neutrophils 4.5 thou/uL (1.40-6.50); %Basophils 1.1 % (0.0-1.0); %Eosinophils 3.9 % (0.0-10.0); %Lymphocytes 17.4 % (21.0-51.0); %Monocytes 9.7 % (0.0-10.0); %Neutrophils 67.4 % (42.0-75.0); Hemoglobin 12.9 g/dL (12.0-16.0); Mean Corpuscular HGB CONC 31.6 g/dL (32.0-36.0); Mean Corpuscular Hemoglobin 28.2 pg (27.0-31.0); Mean Corpuscular Volume 89.1 fl (78.0-98.0); Mean Platelet Volume 11.2 fL (7.4-10.4); Platelet Count 266 10x3/uL (130-400); RBC Distribution Width 13.2 % (11.5-14.5); Red Blood Cell (RBC) Count 4.58 mill/uL (4.20-5.40); White Blood Cell (WBC) Count 6.6 10x3/uL (4.8-10.8)
[2022-10-20 12:51] LABS: Bacteria/HPF None Seen HPF (None Seen); Bilirubin Negative (Negative); Blood, Urine Negative (Negative); Clarity Clear (Clear); Glucose, Urine (Dipstick) Normal (Negative); Ketone, Urine Negative (Negative); Leukocyte 75 Leu/uL (Negative); Nitrite Negative (Negative); Protein, Urine (Dipstick) Negative (Neg-Trace); RBC/HPF 0-3 HPF (0-3); Specific Gravity, Urine 1.007 (1.002-1.036); Squamous Epithelial 0-3 HPF (0-3); Urobilinogen Normal mg/dL (Less than 2); pH, Urine 7.5 (5.0-9.0)
[2022-10-20 13:04] LABS: ALT (SGPT) 31 U/L (8-55); AST (SGOT) 28 U/L (5-34); Albumin 4.1 g/dL (3.4-4.8); Alkaline Phosphatase 131 U/L (40-110); Anion Gap 13 mmol/L (10-20); BUN (Urea Nitrogen) 18 mg/dL (9.8-20.1); Bilirubin, Total 0.6 mg/dL (0.2-1.2); Calc. Creatinine Clearance 0 mL/min (70-130); Calcium 9.2 mg/dL (7.8-10.44); Carbon Dioxide 28 mmol/L (23-31); Chloride 103 mmol/L (98-107); Estimated GFR 54; Glucose 179 mg/dL (80-115); Lipase 16 U/L (8-78); Potassium 3.6 mmol/L (3.5-5.1); Protein, Total 7.1 g/dL (5.8-8.1); Sodium 140 mmol/L (136-145)
[2022-10-20] MEDS ORDERED: Morphine 2 MG/ML VIAL ONE (13:32)
[2022-10-20] MEDS ORDERED: Ondansetron PF 4 MG/2 ML Vial ONE (13:33)
== END 2022-10-20 14:44 | disposition home or self-care (01) ==
LOC: ERS 10:12
DX: K40.90 Unilateral inguinal hernia, without obstruction or gangrene, not specified as recurrent (principal); I11.0 Hypertensive heart disease with heart failure; I50.9 Heart failure, unspecified; Z79.899 Other long term (current) drug therapy; Z79.82 Long term (current) use of aspirin; Z79.01 Long term (current) use of anticoagulants
CPT/HCPCS: 36415; 71045; 74177; 80053; 81003; 81015; 82550; 83605; 83690; 83880; 84484; 85025; 93005; 96374; 96375; J2272; J2405; Q9967

== ENCOUNTER 2023-02-16 04:49 | Emergency (ER) | payer MEDICARE ==
[2023-02-16 05:32] LABS: #Basophils 0.1 thou/uL (0.0-0.2); #Eosinphils 0.2 thou/uL (0.0-0.7); #Monocytes 0.7 thou/uL (0.11-0.59); #Neutrophils 4.6 thou/uL (1.40-6.50); %Basophils 0.8 % (0.0-1.0); %Eosinophils 2.1 % (0.0-10.0); %Lymphocytes 33.7 % (21.0-51.0); %Monocytes 8.6 % (0.0-10.0); %Neutrophils 54.4 % (42.0-75.0); Hematocrit 43.9 % (36.0-47.0); Hemoglobin 13.9 g/dL (12.0-16.0); Mean Corpuscular HGB CONC 31.7 g/dL (32.0-36.0); Mean Corpuscular Hemoglobin 28.3 pg (27.0-31.0); Mean Corpuscular Volume 89.4 fl (78.0-98.0); Mean Platelet Volume 10.9 fL (7.4-10.4); Platelet Count 315 10x3/uL (130-400); RBC Distribution Width 12.6 % (11.5-14.5); Red Blood Cell (RBC) Count 4.91 mill/uL (4.20-5.40); White Blood Cell (WBC) Count 8.5 10x3/uL (4.8-10.8)
[2023-02-16 05:57] LABS: Troponin I Less than 0.010 ng/mL (< 0.028)
[2023-02-16 06:00] LABS: ALT (SGPT) 18 U/L (8-55); AST (SGOT) 16 U/L (5-34); Albumin 4.4 g/dL (3.4-4.8); Alkaline Phosphatase 138 U/L (40-110); Anion Gap 15 mmol/L (10-20); BUN (Urea Nitrogen) 18 mg/dL (9.8-20.1); Bilirubin, Total 0.6 mg/dL (0.2-1.2); Calc. Creatinine Clearance 0 mL/min (70-130); Calcium 9.7 mg/dL (7.8-10.44); Carbon Dioxide 29 mmol/L (23-31); Chloride 103 mmol/L (98-107); Estimated GFR 51; Globulin 3.3 g/dL (2.4-3.5); Glucose 184 mg/dL (80-115); Potassium 3.8 mmol/L (3.5-5.1); Protein, Total 7.7 g/dL (5.8-8.1); Sodium 143 mmol/L (136-145)
[2023-02-16 06:27] LABS: Bacteria/HPF None Seen HPF (None Seen); Bilirubin Negative (Negative); Blood, Urine Negative (Negative); CAUTI Indications for Culture Alt mental st,lethar; Clarity Turbid (Clear); Glucose, Urine (Dipstick) Normal (Negative); Ketone, Urine Negative (Negative); Leukocyte 500 Leu/uL (Negative); Nitrite Negative (Negative); Protein, Urine (Dipstick) 200 mg/dL (Neg-Trace); Specific Gravity, Urine 1.028 (1.002-1.036); Urobilinogen Normal mg/dL (Less than 2); WBC/HPF Greater than 50 HPF (0-3)
[2023-02-16 06:31] LABS: Urine Culture Reflex Yes Yes
== END 2023-02-16 06:35 | disposition home or self-care (01) ==
LOC: ERS 04:49
DX: R06.02 Shortness of breath (principal); I11.0 Hypertensive heart disease with heart failure; I50.9 Heart failure, unspecified; I48.91 Unspecified atrial fibrillation
CPT/HCPCS: 36415; 71045; 80053; 81001; 83880; 84484; 85025; 87086; 93005

== ENCOUNTER 2023-03-11 03:33 | Emergency (ER) | payer MEDICARE ==
[2023-03-11 05:05] LABS: #Basophils 0.1 thou/uL (0.0-0.2); #Eosinphils 0.1 thou/uL (0.0-0.7); #Monocytes 0.7 thou/uL (0.11-0.59); #Neutrophils 5.7 thou/uL (1.40-6.50); %Basophils 0.8 % (0.0-1.0); %Eosinophils 1.1 % (0.0-10.0); %Lymphocytes 17.8 % (21.0-51.0); %Monocytes 8.7 % (0.0-10.0); %Neutrophils 71.2 % (42.0-75.0); Hematocrit 38.3 % (36.0-47.0); Hemoglobin 12.3 g/dL (12.0-16.0); Mean Corpuscular HGB CONC 32.1 g/dL (32.0-36.0); Mean Corpuscular Hemoglobin 28.5 pg (27.0-31.0); Mean Corpuscular Volume 88.9 fl (78.0-98.0); Mean Platelet Volume 11.4 fL (7.4-10.4); Platelet Count 272 10x3/uL (130-400); RBC Distribution Width 12.6 % (11.5-14.5); Red Blood Cell (RBC) Count 4.31 mill/uL (4.20-5.40); White Blood Cell (WBC) Count 7.9 10x3/uL (4.8-10.8)
[2023-03-11 05:32] LABS: ALT (SGPT) 28 U/L (8-55); AST (SGOT) 25 U/L (5-34); Albumin 3.8 g/dL (3.4-4.8); Alkaline Phosphatase 113 U/L (40-110); Anion Gap 13 mmol/L (10-20); BUN (Urea Nitrogen) 17 mg/dL (9.8-20.1); Bilirubin, Total 0.3 mg/dL (0.2-1.2); Calc. Creatinine Clearance 0 mL/min (70-130); Calcium 9.3 mg/dL (7.8-10.44); Carbon Dioxide 28 mmol/L (23-31); Chloride 99 mmol/L (98-107); Estimated GFR 55; Globulin 3.2 g/dL (2.4-3.5); Glucose 135 mg/dL (80-115); Potassium 4.1 mmol/L (3.5-5.1); Sodium 136 mmol/L (136-145)
== END 2023-03-11 06:09 | disposition home or self-care (01) ==
LOC: ERS 03:33
DX: R06.02 Shortness of breath (principal); I11.0 Hypertensive heart disease with heart failure; I50.9 Heart failure, unspecified; Z79.01 Long term (current) use of anticoagulants; Z79.899 Other long term (current) drug therapy
CPT/HCPCS: 36415; 71045; 80053; 85025; 93005; 94760

== ENCOUNTER 2023-03-24 19:42 | Emergency (ER) | payer MEDICARE ==
[2023-03-24 20:27] LABS: #Basophils 0.1 thou/uL (0.0-0.2); #Eosinphils 0.1 thou/uL (0.0-0.7); #Monocytes 0.7 thou/uL (0.11-0.59); #Neutrophils 4.7 thou/uL (1.40-6.50); %Eosinophils 1.6 % (0.0-10.0); %Lymphocytes 19.3 % (21.0-51.0); %Monocytes 10.4 % (0.0-10.0); %Neutrophils 67.4 % (42.0-75.0); Hemoglobin 12.3 g/dL (12.0-16.0); Mean Corpuscular HGB CONC 32.4 g/dL (32.0-36.0); Mean Corpuscular Hemoglobin 28.2 pg (27.0-31.0); Mean Corpuscular Volume 87.2 fl (78.0-98.0); Mean Platelet Volume 10.6 fL (7.4-10.4); Platelet Count 272 10x3/uL (130-400); RBC Distribution Width 12.7 % (11.5-14.5); Red Blood Cell (RBC) Count 4.36 mill/uL (4.20-5.40); White Blood Cell (WBC) Count 6.9 10x3/uL (4.8-10.8)
[2023-03-24 20:51] LABS: ALT (SGPT) 34 U/L (8-55); AST (SGOT) 21 U/L (5-34); Albumin 4.2 g/dL (3.4-4.8); Alkaline Phosphatase 110 U/L (40-110); Anion Gap 13 mmol/L (10-20); BUN (Urea Nitrogen) 14 mg/dL (9.8-20.1); Bilirubin, Total 0.3 mg/dL (0.2-1.2); Calc. Creatinine Clearance 0 mL/min (70-130); Calcium 9.6 mg/dL (7.8-10.44); Carbon Dioxide 30 mmol/L (23-31); Chloride 98 mmol/L (98-107); Estimated GFR 64; Glucose 133 mg/dL (80-115); Lipase 22 U/L (8-78); Magnesium 2.1 mg/dL (1.6-2.6); Potassium 4.4 mmol/L (3.5-5.1); Protein, Total 7.2 g/dL (5.8-8.1); Sodium 137 mmol/L (136-145)
[2023-03-24 21:03] LABS: Troponin I Less than 0.010 ng/mL (< 0.028)
== END 2023-03-24 21:40 | disposition home or self-care (01) ==
LOC: ERS 19:42
DX: R06.02 Shortness of breath (principal); I11.0 Hypertensive heart disease with heart failure; I50.9 Heart failure, unspecified; Z79.899 Other long term (current) drug therapy; Z79.01 Long term (current) use of anticoagulants
CPT/HCPCS: 36415; 71045; 80053; 83690; 83735; 83880; 84484; 85025; 93005

== ENCOUNTER 2023-03-25 03:30 | Emergency (ER) | payer MEDICARE ==
[2023-03-25] MEDS ORDERED: Furosemide 40 MG TAB ONE (05:50)
[2023-03-25 08:29] LABS: SARS-CoV-2 NAA Rapid Test Not Detected (NotDetected)
== END 2023-03-25 06:48 | disposition home or self-care (01) ==
LOC: ERS 03:30
DX: I11.0 Hypertensive heart disease with heart failure (principal); I50.9 Heart failure, unspecified; Z20.822 Contact with and (suspected) exposure to COVID-19
CPT/HCPCS: 0240U; 93005; 99285

== ENCOUNTER 2023-03-28 21:19 | Emergency (ER) | payer MEDICARE ==
[2023-03-28 22:20] LABS: #Basophils 0.1 thou/uL (0.0-0.2); #Eosinphils 0.1 thou/uL (0.0-0.7); #Monocytes 0.7 thou/uL (0.11-0.59); #Neutrophils 4.1 thou/uL (1.40-6.50); %Basophils 0.9 % (0.0-1.0); %Eosinophils 1.4 % (0.0-10.0); %Lymphocytes 13.9 % (21.0-51.0); %Monocytes 12.5 % (0.0-10.0); Hematocrit 39.3 % (36.0-47.0); Hemoglobin 12.3 g/dL (12.0-16.0); Mean Corpuscular HGB CONC 31.3 g/dL (32.0-36.0); Mean Corpuscular Hemoglobin 27.9 pg (27.0-31.0); Mean Corpuscular Volume 89.1 fl (78.0-98.0); Mean Platelet Volume 10.9 fL (7.4-10.4); Platelet Count 270 10x3/uL (130-400); Red Blood Cell (RBC) Count 4.41 mill/uL (4.20-5.40); White Blood Cell (WBC) Count 5.8 10x3/uL (4.8-10.8)
[2023-03-28 22:43] LABS: ALT (SGPT) 23 U/L (8-55); AST (SGOT) 18 U/L (5-34); Albumin 4.2 g/dL (3.4-4.8); Alkaline Phosphatase 108 U/L (40-110); Anion Gap 12 mmol/L (10-20); BUN (Urea Nitrogen) 19 mg/dL (9.8-20.1); Bilirubin, Total 0.4 mg/dL (0.2-1.2); Calc. Creatinine Clearance 0 mL/min (70-130); Carbon Dioxide 26 mmol/L (23-31); Chloride 104 mmol/L (98-107); Estimated GFR 39; Globulin 2.6 g/dL (2.4-3.5); Glucose 157 mg/dL (80-115); Potassium 4.5 mmol/L (3.5-5.1); Protein, Total 6.8 g/dL (5.8-8.1); Sodium 137 mmol/L (136-145)
[2023-03-28 22:44] LABS: Troponin I Less than 0.010 ng/mL (< 0.028)
== END 2023-03-28 23:47 | disposition left against medical advice (07) ==
LOC: ERS 21:19
DX: Z53.21 Procedure and treatment not carried out due to patient leaving prior to being seen by health care provider (principal)
CPT/HCPCS: 36415; 71045; 80053; 84484; 85025; 93005

== ENCOUNTER 2023-04-02 03:31 | Emergency (ER) | payer MEDICARE | END 2023-04-02 04:27 | disposition left against medical advice (07) | LOC: ERS 03:31 | DX: Z53.21 Procedure and treatment not carried out due to patient leaving prior to being seen by health care provider (principal) | CPT/HCPCS: 93005 ==

== ENCOUNTER 2023-04-02 05:19 | Emergency (ER) | payer MEDICARE ==
[2023-04-02] MEDS ORDERED: hydrOXYzine 25 MG TAB ONE (05:56)
== END 2023-04-02 06:03 | disposition home or self-care (01) ==
LOC: ERS 05:19
DX: F43.0 Acute stress reaction (principal); R06.02 Shortness of breath; I48.91 Unspecified atrial fibrillation
CPT/HCPCS: 93005

== ENCOUNTER 2023-04-04 05:48 | Inpatient (IN) | payer MEDICARE ==
[2023-04-04 06:26] LABS: Actual Bicarbonate (HCO3v) 28.4 mEq/L (22-28); Base Excess 1.1 mEq/L (-2.0 to +3.0); Calcium, Ionized (venous) 1.15 mmol/L (1.16-1.32); Chloride (VBG) 102 mmol/L (98-106); Hematocrit-VBG 38 % (36.0-47.0); Potassium (VBG) 3.91 mmol/L (3.70-5.30); Sodium 140 mmol/L (133-146); pH (venous) 7.315 (7.32-7.43)
[2023-04-04 06:30] LABS: #Basophils 0.1 thou/uL (0.0-0.2); #Eosinphils 0.1 thou/uL (0.0-0.7); #Monocytes 0.5 thou/uL (0.11-0.59); #Neutrophils 3.4 thou/uL (1.40-6.50); %Eosinophils 1.7 % (0.0-10.0); %Lymphocytes 22.1 % (21.0-51.0); %Monocytes 10.3 % (0.0-10.0); %Neutrophils 64.3 % (42.0-75.0); Hematocrit 37.6 % (36.0-47.0); Hemoglobin 11.9 g/dL (12.0-16.0); Mean Corpuscular HGB CONC 31.6 g/dL (32.0-36.0); Mean Corpuscular Hemoglobin 27.7 pg (27.0-31.0); Mean Corpuscular Volume 87.6 fl (78.0-98.0); Mean Platelet Volume 10.3 fL (7.4-10.4); Platelet Count 290 10x3/uL (130-400); RBC Distribution Width 13.1 % (11.5-14.5); Red Blood Cell (RBC) Count 4.29 mill/uL (4.20-5.40); White Blood Cell (WBC) Count 5.3 10x3/uL (4.8-10.8)
[2023-04-04 06:54] LABS: ALT (SGPT) 36 U/L (8-55); AST (SGOT) 25 U/L (5-34); Albumin 4.2 g/dL (3.4-4.8); Alkaline Phosphatase 127 U/L (40-110); Anion Gap 11 mmol/L (10-20); BUN (Urea Nitrogen) 15 mg/dL (9.8-20.1); Bilirubin, Total 0.5 mg/dL (0.2-1.2); Calc. Creatinine Clearance 0 mL/min (70-130); Calcium 9.2 mg/dL (7.8-10.44); Carbon Dioxide 31 mmol/L (23-31); Chloride 102 mmol/L (98-107); Estimated GFR 56; Globulin 2.5 g/dL (2.4-3.5); Glucose 143 mg/dL (80-115); Potassium 3.8 mmol/L (3.5-5.1); Protein, Total 6.7 g/dL (5.8-8.1); Sodium 140 mmol/L (136-145)
[2023-04-04 07:03] LABS: Troponin I Less than 0.010 ng/mL (< 0.028)
[2023-04-04] MEDS ORDERED: Furosemide 40 MG/4 ML VIAL ONE (07:25)
[2023-04-04] MEDS ORDERED: Ondansetron PF 4 MG/2 ML Vial ONE (07:31)
[2023-04-04] MEDS ORDERED: Ondansetron PF 4 MG/2 ML Vial IVP PRN (07:50)
[2023-04-04 08:40] VITALS: BMI 56.3
[2023-04-04] MEDS ORDERED: Aspirin Chewable 81 MG TAB PO SCH (09:00)
[2023-04-04] MEDS: Amlodipine 10 MG TAB PO SCH (10:15)
[2023-04-04] MEDS: Potassium Chloride 20 MEQ TAB PO SCH (10:15)
[2023-04-04] MEDS: Apixaban 5 MG TAB PO SCH ×2 (10:15→22:19)
[2023-04-04] MEDS: Amiodarone 200 MG TAB PO SCH (10:15)
[2023-04-04] MEDS: Aspirin Chewable 81 MG TAB PO SCH (10:15)
[2023-04-04] MEDS: hydrOXYzine 25 MG TAB PO SCH ×3 (10:15→22:19)
[2023-04-04] MEDS: Furosemide 40 MG/4 ML VIAL SLOW IVP SCH (14:17)
[2023-04-04] MEDS: cloNIDine 0.1 MG TAB PO SCH (22:19)
[2023-04-04] MEDS: Acetaminophen 325 MG TAB PO PRN (22:24)
[2023-04-05 05:19] LABS: #Eosinphils 0.1 thou/uL (0.0-0.7); #Monocytes 0.6 thou/uL (0.11-0.59); %Basophils 0.8 % (0.0-1.0); %Eosinophils 2.7 % (0.0-10.0); %Lymphocytes 22.4 % (21.0-51.0); %Monocytes 11.6 % (0.0-10.0); %Neutrophils 62.3 % (42.0-75.0); Hematocrit 36.2 % (36.0-47.0); Hemoglobin 11.4 g/dL (12.0-16.0); Mean Corpuscular HGB CONC 31.5 g/dL (32.0-36.0); Mean Corpuscular Hemoglobin 27.6 pg (27.0-31.0); Mean Corpuscular Volume 87.7 fl (78.0-98.0); Mean Platelet Volume 10.8 fL (7.4-10.4); Platelet Count 278 10x3/uL (130-400); Red Blood Cell (RBC) Count 4.13 mill/uL (4.20-5.40); White Blood Cell (WBC) Count 4.7 10x3/uL (4.8-10.8)
[2023-04-05 05:43] LABS: Anion Gap 15 mmol/L (10-20); BUN (Urea Nitrogen) 16 mg/dL (9.8-20.1); Calc. Creatinine Clearance 109 mL/min (70-130); Calcium 8.7 mg/dL (7.8-10.44); Carbon Dioxide 26 mmol/L (23-31); Chloride 102 mmol/L (98-107); Estimated GFR 57; Glucose 177 mg/dL (80-115); Potassium 3.2 mmol/L (3.5-5.1); Sodium 140 mmol/L (136-145)
[2023-04-05] MEDS: Furosemide 40 MG/4 ML VIAL SLOW IVP SCH ×2 (06:09→13:16)
[2023-04-05] MEDS: Acetaminophen 325 MG TAB PO PRN ×3 (06:20→22:26)
[2023-04-05] MEDS: Potassium Chloride 20 MEQ TAB PO SCH (08:35)
[2023-04-05] MEDS: Aspirin Chewable 81 MG TAB PO SCH (08:35)
[2023-04-05] MEDS: Apixaban 5 MG TAB PO SCH ×2 (08:35→20:27)
[2023-04-05] MEDS: Amiodarone 200 MG TAB PO SCH (08:35)
[2023-04-05] MEDS: hydrOXYzine 25 MG TAB PO SCH ×3 (08:35→20:27)
[2023-04-05] MEDS: Amlodipine 10 MG TAB PO SCH (08:36)
[2023-04-05] MEDS: Ondansetron ODT 4 MG TAB PO PRN ×2 (08:39→16:50)
[2023-04-05] MEDS ORDERED: HumaLOG 300 UNITS/3 ML VIAL SC PRN (13:11)
[2023-04-05] MEDS ORDERED: Glucagon 1 MG/ML KIT IM PRN (13:11)
[2023-04-05] MEDS ORDERED: Dextrose 5% in Water 1,000 ML IV PRN (13:11)
[2023-04-05] MEDS ORDERED: Dextrose 50% Abboject 50 ML SYRINGE SLOW IVP PRN (13:11)
[2023-04-05] MEDS ORDERED: Empagliflozin 10 MG TAB PO SCH (15:15)
[2023-04-05] MEDS ORDERED: Potassium Chloride 20 MEQ TAB PO SCH (17:00)
[2023-04-05] MEDS: cloNIDine 0.1 MG TAB PO SCH (20:27)
[2023-04-06] MEDS: Furosemide 40 MG/4 ML VIAL SLOW IVP SCH ×2 (05:20→15:28)
[2023-04-06 05:57] LABS: #Basophils 0.1 thou/uL (0.0-0.2); #Eosinphils 0.1 thou/uL (0.0-0.7); #Monocytes 0.5 thou/uL (0.11-0.59); #Neutrophils 2.7 thou/uL (1.40-6.50); %Basophils 1.3 % (0.0-1.0); %Eosinophils 2.9 % (0.0-10.0); %Lymphocytes 23.6 % (21.0-51.0); %Monocytes 10.9 % (0.0-10.0); %Neutrophils 61.1 % (42.0-75.0); Hematocrit 36.3 % (36.0-47.0); Hemoglobin 11.3 g/dL (12.0-16.0); Mean Corpuscular HGB CONC 31.1 g/dL (32.0-36.0); Mean Corpuscular Hemoglobin 27.3 pg (27.0-31.0); Mean Corpuscular Volume 87.7 fl (78.0-98.0); Mean Platelet Volume 10.7 fL (7.4-10.4); Platelet Count 303 10x3/uL (130-400); RBC Distribution Width 12.9 % (11.5-14.5); Red Blood Cell (RBC) Count 4.14 mill/uL (4.20-5.40); White Blood Cell (WBC) Count 4.5 10x3/uL (4.8-10.8)
[2023-04-06 06:27] LABS: Anion Gap 13 mmol/L (10-20); BUN (Urea Nitrogen) 14 mg/dL (9.8-20.1); Calc. Creatinine Clearance 110 mL/min (70-130); Calcium 8.9 mg/dL (7.8-10.44); Carbon Dioxide 28 mmol/L (23-31); Chloride 104 mmol/L (98-107); Estimated GFR 58; Glucose 125 mg/dL (80-115); Potassium 3.8 mmol/L (3.5-5.1); Sodium 141 mmol/L (136-145)
[2023-04-06] MEDS: Spironolactone 25 MG TAB PO SCH (09:42)
[2023-04-06] MEDS: Potassium Chloride 20 MEQ TAB PO SCH (09:42)
[2023-04-06] MEDS: Empagliflozin 10 MG TAB PO SCH (09:42)
[2023-04-06] MEDS: Aspirin Chewable 81 MG TAB PO SCH (09:42)
[2023-04-06] MEDS: Amlodipine 10 MG TAB PO SCH (09:42)
[2023-04-06] MEDS: Apixaban 5 MG TAB PO SCH ×2 (09:42→20:48)
[2023-04-06] MEDS: Amiodarone 200 MG TAB PO SCH (09:43)
[2023-04-06] MEDS: hydrOXYzine 25 MG TAB PO SCH ×3 (09:44→20:48)
[2023-04-06] MEDS: Acetaminophen 325 MG TAB PO PRN ×3 (09:57→21:58)
[2023-04-06] MEDS: Ondansetron ODT 4 MG TAB PO PRN ×2 (09:58→18:23)
[2023-04-06] MEDS: cloNIDine 0.1 MG TAB PO SCH (20:48)
[2023-04-07] MEDS: Furosemide 40 MG/4 ML VIAL SLOW IVP SCH ×2 (05:32→14:03)
[2023-04-07] MEDS: hydrOXYzine 25 MG TAB PO SCH ×2 (09:34→14:03)
[2023-04-07] MEDS: Spironolactone 25 MG TAB PO SCH (09:34)
[2023-04-07] MEDS: Apixaban 5 MG TAB PO SCH (09:34)
[2023-04-07] MEDS: Empagliflozin 10 MG TAB PO SCH (09:34)
[2023-04-07] MEDS: Aspirin Chewable 81 MG TAB PO SCH (09:34)
[2023-04-07] MEDS: Amlodipine 10 MG TAB PO SCH (09:34)
[2023-04-07 11:52] VITALS: TEMP 98.1
[2023-04-07] MEDS ORDERED: ALPRAZolam 0.25 MG TAB PO PRN (12:27)
[2023-04-07] MEDS: Acetaminophen 325 MG TAB PO PRN (14:03)
[2023-04-07 15:29] VITALS: BP 132/86
== END 2023-04-07 16:00 | disposition home or self-care (01) | DRG 291 ==
LOC: ERS 05:48 → 2NO 07:39
PROVIDERS: ADMIT Hospitalist; ATTEND Internal Medicine
PROC: 4A043R1 Measurement of Venous Saturation, Peripheral, Percutaneous Approach (ICD-10-PCS; principal; 2023-04-04)
DX: I13.0 Hypertensive heart and chronic kidney disease with heart failure and stage 1 through stage 4 chronic kidney disease, or unspecified chronic kidney disease (principal); I50.33 Acute on chronic diastolic (congestive) heart failure; J96.01 Acute respiratory failure with hypoxia; Z68.43 Body mass index [BMI] 50.0-59.9, adult; I48.19 Other persistent atrial fibrillation; Z79.899 Other long term (current) drug therapy; Z79.01 Long term (current) use of anticoagulants; E11.22 Type 2 diabetes mellitus with diabetic chronic kidney disease; Z79.82 Long term (current) use of aspirin; Z90.49 Acquired absence of other specified parts of digestive tract; Z90.710 Acquired absence of both cervix and uterus; Z98.51 Tubal ligation status; Z98.890 Other specified postprocedural states; E66.01 Morbid (severe) obesity due to excess calories; N18.30 Chronic kidney disease, stage 3 unspecified; E87.6 Hypokalemia; F41.9 Anxiety disorder, unspecified
CPT/HCPCS: 36415; 36416; 71045; 80048; 80053; 82805; 83880; 84484; 85025; 93005; 93798; 96374; 96375; J1940; J2405; Q0162

== ENCOUNTER 2023-05-15 21:46 | Emergency (ER) | payer MEDICARE ==
[2023-05-15] MEDS ORDERED: Furosemide 20 MG/2 ML VIAL ONE (22:16)
[2023-05-15 22:51] LABS: #Basophils 0.1 thou/uL (0.0-0.2); #Eosinphils 0.1 thou/uL (0.0-0.7); #Monocytes 0.8 thou/uL (0.11-0.59); #Neutrophils 5.1 thou/uL (1.40-6.50); %Basophils 0.9 % (0.0-1.0); %Eosinophils 1.4 % (0.0-10.0); %Lymphocytes 21.4 % (21.0-51.0); %Monocytes 10.1 % (0.0-10.0); %Neutrophils 65.9 % (42.0-75.0); Hematocrit 42.5 % (36.0-47.0); Mean Corpuscular HGB CONC 30.6 g/dL (32.0-36.0); Mean Corpuscular Hemoglobin 26.9 pg (27.0-31.0); Mean Corpuscular Volume 87.8 fl (78.0-98.0); Mean Platelet Volume 11.3 fL (7.4-10.4); Platelet Count 313 10x3/uL (130-400); RBC Distribution Width 14.3 % (11.5-14.5); Red Blood Cell (RBC) Count 4.84 mill/uL (4.20-5.40); White Blood Cell (WBC) Count 7.7 10x3/uL (4.8-10.8)
[2023-05-15 23:18] LABS: ALT (SGPT) 20 U/L (8-55); AST (SGOT) 17 U/L (5-34); Albumin 4.3 g/dL (3.4-4.8); Alkaline Phosphatase 130 U/L (40-110); Anion Gap 18 mmol/L (10-20); BUN (Urea Nitrogen) 23 mg/dL (9.8-20.1); Bilirubin, Total 0.5 mg/dL (0.2-1.2); Calc. Creatinine Clearance 0 mL/min (70-130); Calcium 9.4 mg/dL (7.8-10.44); Carbon Dioxide 32 mmol/L (23-31); Chloride 95 mmol/L (98-107); Estimated GFR 41; Globulin 3.8 g/dL (2.4-3.5); Glucose 123 mg/dL (80-115); Potassium 3.9 mmol/L (3.5-5.1); Protein, Total 8.1 g/dL (5.8-8.1); Sodium 141 mmol/L (136-145)
[2023-05-15 23:19] LABS: Troponin I Less than 0.010 ng/mL (< 0.028)
== END 2023-05-16 00:52 | disposition home or self-care (01) ==
LOC: ERS 21:46
DX: I11.0 Hypertensive heart disease with heart failure (principal); I50.9 Heart failure, unspecified; I48.91 Unspecified atrial fibrillation; Z79.01 Long term (current) use of anticoagulants; Z79.899 Other long term (current) drug therapy
CPT/HCPCS: 71045; 80053; 83880; 84484; 85025; 93005; 94760; 96374; J1940

== ENCOUNTER 2023-05-23 21:47 | Emergency (ER) | payer MEDICARE ==
[2023-05-23 23:13] LABS: #Basophils 0.1 thou/uL (0.0-0.2); #Eosinphils 0.1 thou/uL (0.0-0.7); #Monocytes 0.6 thou/uL (0.11-0.59); #Neutrophils 4.3 thou/uL (1.40-6.50); %Eosinophils 1.3 % (0.0-10.0); %Lymphocytes 18.7 % (21.0-51.0); %Neutrophils 69.7 % (42.0-75.0); Hematocrit 40.2 % (36.0-47.0); Hemoglobin 12.6 g/dL (12.0-16.0); Mean Corpuscular HGB CONC 31.3 g/dL (32.0-36.0); Mean Corpuscular Hemoglobin 26.9 pg (27.0-31.0); Mean Corpuscular Volume 85.7 fl (78.0-98.0); Mean Platelet Volume 11.1 fL (7.4-10.4); Platelet Count 292 10x3/uL (130-400); RBC Distribution Width 14.4 % (11.5-14.5); Red Blood Cell (RBC) Count 4.69 mill/uL (4.20-5.40); White Blood Cell (WBC) Count 6.1 10x3/uL (4.8-10.8)
[2023-05-23 23:36] LABS: ALT (SGPT) 24 U/L (8-55); AST (SGOT) 26 U/L (5-34); Albumin 3.7 g/dL (3.4-4.8); Alkaline Phosphatase 127 U/L (40-110); Anion Gap 13 mmol/L (10-20); BUN (Urea Nitrogen) 34 mg/dL (9.8-20.1); Bilirubin, Total 0.4 mg/dL (0.2-1.2); Calc. Creatinine Clearance 0 mL/min (70-130); Calcium 9.1 mg/dL (7.8-10.44); Carbon Dioxide 29 mmol/L (23-31); Chloride 102 mmol/L (98-107); Estimated GFR 35; Globulin 3.5 g/dL (2.4-3.5); Glucose 124 mg/dL (80-115); Magnesium 2.5 mg/dL (1.6-2.6); Protein, Total 7.2 g/dL (5.8-8.1); Sodium 139 mmol/L (136-145)
[2023-05-23 23:39] LABS: Troponin I Less than 0.010 ng/mL (< 0.028)
== END 2023-05-24 00:29 | disposition home or self-care (01) ==
LOC: ERS 21:47
DX: N17.9 Acute kidney failure, unspecified (principal); I11.0 Hypertensive heart disease with heart failure; I50.9 Heart failure, unspecified
CPT/HCPCS: 36415; 71045; 80053; 83735; 83880; 84484; 85025; 93005

== ENCOUNTER 2023-06-03 02:25 | Emergency (ER) | payer MEDICARE ==
[2023-06-03 03:20] LABS: #Basophils 0.1 thou/uL (0.0-0.2); #Eosinphils 0.1 thou/uL (0.0-0.7); #Monocytes 0.7 thou/uL (0.11-0.59); #Neutrophils 4.9 thou/uL (1.40-6.50); %Eosinophils 1.3 % (0.0-10.0); %Lymphocytes 19.4 % (21.0-51.0); %Monocytes 10.2 % (0.0-10.0); %Neutrophils 67.8 % (42.0-75.0); Hematocrit 45.1 % (36.0-47.0); Hemoglobin 14.1 g/dL (12.0-16.0); Mean Corpuscular HGB CONC 31.3 g/dL (32.0-36.0); Mean Corpuscular Hemoglobin 26.4 pg (27.0-31.0); Mean Corpuscular Volume 84.5 fl (78.0-98.0); Mean Platelet Volume 11.3 fL (7.4-10.4); Platelet Count 307 10x3/uL (130-400); RBC Distribution Width 14.6 % (11.5-14.5); Red Blood Cell (RBC) Count 5.34 mill/uL (4.20-5.40); White Blood Cell (WBC) Count 7.2 10x3/uL (4.8-10.8)
[2023-06-03 03:43] LABS: ALT (SGPT) 20 U/L (8-55); AST (SGOT) 17 U/L (5-34); Albumin 3.8 g/dL (3.4-4.8); Alkaline Phosphatase 136 U/L (40-110); Anion Gap 16 mmol/L (10-20); BUN (Urea Nitrogen) 31 mg/dL (9.8-20.1); Bilirubin, Total 0.6 mg/dL (0.2-1.2); Calc. Creatinine Clearance 0 mL/min (70-130); Calcium 8.9 mg/dL (7.8-10.44); Carbon Dioxide 24 mmol/L (23-31); Chloride 99 mmol/L (98-107); Estimated GFR 44; Globulin 3.9 g/dL (2.4-3.5); Glucose 136 mg/dL (80-115); Lipase 34 U/L (8-78); Magnesium 2.4 mg/dL (1.6-2.6); Potassium 3.8 mmol/L (3.5-5.1); Protein, Total 7.7 g/dL (5.8-8.1); Sodium 135 mmol/L (136-145)
[2023-06-03 03:45] LABS: Troponin I Less than 0.010 ng/mL (< 0.028)
== END 2023-06-03 04:20 | disposition home or self-care (01) ==
LOC: ERS 02:25
DX: I11.0 Hypertensive heart disease with heart failure (principal); I50.9 Heart failure, unspecified
CPT/HCPCS: 36415; 71045; 80053; 83690; 83735; 83880; 84484; 85025; 85379; 93005

== ENCOUNTER 2023-06-07 11:59 | Emergency (ER) | payer MEDICARE ==
[2023-06-07 13:22] LABS: #Basophils 0.1 thou/uL (0.0-0.2); #Eosinphils 0.1 thou/uL (0.0-0.7); #Monocytes 0.5 thou/uL (0.11-0.59); #Neutrophils 4.4 thou/uL (1.40-6.50); %Basophils 1.3 % (0.0-1.0); %Eosinophils 1.4 % (0.0-10.0); %Lymphocytes 17.9 % (21.0-51.0); %Monocytes 8.2 % (0.0-10.0); Hematocrit 43.4 % (36.0-47.0); Hemoglobin 13.4 g/dL (12.0-16.0); Mean Corpuscular HGB CONC 30.9 g/dL (32.0-36.0); Mean Corpuscular Hemoglobin 26.6 pg (27.0-31.0); Mean Corpuscular Volume 86.1 fl (78.0-98.0); Mean Platelet Volume 11.2 fL (7.4-10.4); Platelet Count 296 10x3/uL (130-400); RBC Distribution Width 14.7 % (11.5-14.5); Red Blood Cell (RBC) Count 5.04 mill/uL (4.20-5.40); White Blood Cell (WBC) Count 6.2 10x3/uL (4.8-10.8)
[2023-06-07 13:46] LABS: ALT (SGPT) 35 U/L (8-55); AST (SGOT) 29 U/L (5-34); Albumin 3.6 g/dL (3.4-4.8); Alkaline Phosphatase 148 U/L (40-110); Anion Gap 13 mmol/L (10-20); BUN (Urea Nitrogen) 28 mg/dL (9.8-20.1); Bilirubin, Total 0.5 mg/dL (0.2-1.2); Calc. Creatinine Clearance 0 mL/min (70-130); Carbon Dioxide 27 mmol/L (23-31); Chloride 103 mmol/L (98-107); Estimated GFR 43; Globulin 3.8 g/dL (2.4-3.5); Glucose 158 mg/dL (80-115); Potassium 4.3 mmol/L (3.5-5.1); Protein, Total 7.4 g/dL (5.8-8.1); Sodium 139 mmol/L (136-145)
[2023-06-07 13:49] LABS: Troponin I Less than 0.010 ng/mL (< 0.028)
== END 2023-06-07 15:38 | disposition home or self-care (01) ==
LOC: ERS 11:59
DX: I48.91 Unspecified atrial fibrillation (principal); I11.0 Hypertensive heart disease with heart failure; I50.22 Chronic systolic (congestive) heart failure; Z70.1 Counseling related to patient's sexual behavior and orientation; Z79.899 Other long term (current) drug therapy
CPT/HCPCS: 36415; 71045; 80053; 83880; 84484; 85025; 93005

== ENCOUNTER 2023-07-09 11:54 | Outpatient (CLI) | payer MEDICARE ==
[2023-07-09 13:08] LABS: #Basophils 0.1 10x3/uL (0.0-0.2); #Eosinphils 0.1 10x3/uL (0.0-0.5); #Monocytes 0.7 10x3/uL (0.0-1.1); #Neutrophils 5.2 10x3/uL (1.5-8.4); %Eosinophils 1.8 % (0.0-6.0); %Lymphocytes 17.3 % (18.0-47.0); %Monocytes 8.9 % (0.0-10.0); %Neutrophils 70.6 % (40.0-75.0); Hematocrit 42.8 % (34.9-44.5); Hemoglobin 13.4 g/dL (12.0-15.5); Mean Corpuscular HGB CONC 31.3 g/dL (32.0-36.0); Mean Corpuscular Hemoglobin 26.4 pg (27.0-33.0); Mean Corpuscular Volume 84.3 fl (81.6-98.3); Mean Platelet Volume 10.9 fl (7.4-10.4); Platelet Count 327 10x3/uL (150-450); RBC Distribution Width 15.4 % (11.5-14.5); Red Blood Cell (RBC) Count 5.08 10x6/uL (3.90-5.03); White Blood Cell (WBC) Count 7.3 10x3/uL (3.5-10.5)
[2023-07-09 13:16] LABS: PTT 29.7 sec (22.0-33.0); Prothrombin Time 10.9 sec (9.5-12.1)
[2023-07-09 13:22] LABS: ALT (SGPT) 31 U/L (8-55); AST (SGOT) 24 U/L (5-34); Albumin 3.9 g/dL (3.4-4.8); Alkaline Phosphatase 152 U/L (40-110); Anion Gap 15 mmol/L (10-20); BUN (Urea Nitrogen) 22 mg/dL (9.8-20.1); Bilirubin, Direct 0.2 mg/dL (0.1-0.3); Bilirubin, Total 0.5 mg/dL (0.2-1.2); Calc. Creatinine Clearance 0 mL/min (70-130); Calcium 8.8 mg/dL (7.8-10.44); Carbon Dioxide 28 mmol/L (23-31); Chloride 102 mmol/L (98-107); Estimated GFR 43; Glucose 165 mg/dL (80-115); Potassium 4.2 mmol/L (3.5-5.1); Protein, Total 6.9 g/dL (5.8-8.1); Sodium 141 mmol/L (136-145)
== END 2023-07-09 11:55 | disposition home or self-care (01) ==
LOC: LABBT 11:54
PROVIDERS: ATTEND Internal Medicine Cardiovascular Disease
DX: Z01.818 Encounter for other preprocedural examination (principal); I50.30 Unspecified diastolic (congestive) heart failure; I48.91 Unspecified atrial fibrillation
CPT/HCPCS: 80053; 80076; 85025; 85610; 85730; 93005; 93010

== ENCOUNTER → 2023-07-13 | Day surgery (SDC) | payer MEDICARE ==
[2023-07-09 12:38] VITALS: BMI 54.8
[~2023-07-13] MED LIST changes: +Heparin 10,000 UNITS/ 10 ML VIAL ONE; -Iopamidol-370 76% 500 ML MDV (1 ML CHARGE) ONE; +Lidocaine 1% (PF) 30 ML VIAL ONE; +Lidocaine 1% PF 5 ML VIAL ONE; +Midazolam HCl 2 mg/2 ml Vial ONE; +Nitroglycerin 50 MG/250 ML BOT 250 ML ONE; +Ondansetron PF 4 MG/2 ML Vial ONE; +Verapamil 5 MG/2 ML VIAL ONE; +fentaNYL 50 mcg/mL 1 mL Vial ONE
[2023-07-13 07:58] LABS: Cardiac Risk 5.4 (Less than 4.5)
== END ==
LOC: SDC 06:44
PROVIDERS: ATTEND Internal Medicine Cardiovascular Disease
DX: R94.39 Abnormal result of other cardiovascular function study (principal); I48.0 Paroxysmal atrial fibrillation; I11.0 Hypertensive heart disease with heart failure; I50.9 Heart failure, unspecified; I42.0 Dilated cardiomyopathy; Z53.8 Procedure and treatment not carried out for other reasons; Z79.82 Long term (current) use of aspirin; Z79.84 Long term (current) use of oral hypoglycemic drugs; Z79.899 Other long term (current) drug therapy; Z86.16 Personal history of COVID-19; Z90.710 Acquired absence of both cervix and uterus; Z90.49 Acquired absence of other specified parts of digestive tract
CPT/HCPCS: 36415; 80061; J1644; J2001; J2250; J2405; J3010

== ENCOUNTER 2023-07-19 03:37 | Emergency (ER) | payer MEDICARE ==
[2023-07-19 05:54] LABS: #Basophils 0.1 thou/uL (0.0-0.2); #Eosinphils 0.1 thou/uL (0.0-0.7); #Monocytes 0.6 thou/uL (0.11-0.59); #Neutrophils 4.6 thou/uL (1.40-6.50); %Basophils 0.9 % (0.0-1.0); %Eosinophils 1.9 % (0.0-10.0); %Lymphocytes 20.4 % (21.0-51.0); %Monocytes 8.6 % (0.0-10.0); %Neutrophils 67.9 % (42.0-75.0); Hematocrit 42.7 % (36.0-47.0); Mean Corpuscular HGB CONC 30.4 g/dL (32.0-36.0); Mean Corpuscular Hemoglobin 25.9 pg (27.0-31.0); Mean Corpuscular Volume 85.1 fl (78.0-98.0); Mean Platelet Volume 11.3 fL (7.4-10.4); Platelet Count 295 10x3/uL (130-400); RBC Distribution Width 15.3 % (11.5-14.5); Red Blood Cell (RBC) Count 5.02 mill/uL (4.20-5.40); White Blood Cell (WBC) Count 6.8 10x3/uL (4.8-10.8)
[2023-07-19 06:01] LABS: ALT (SGPT) 22 U/L (8-55); AST (SGOT) 18 U/L (5-34); Albumin 3.8 g/dL (3.4-4.8); Alkaline Phosphatase 148 U/L (40-110); Anion Gap 13 mmol/L (10-20); BUN (Urea Nitrogen) 27 mg/dL (9.8-20.1); Bilirubin, Total 0.4 mg/dL (0.2-1.2); Calc. Creatinine Clearance 0 mL/min (70-130); Calcium 9.3 mg/dL (7.8-10.44); Carbon Dioxide 28 mmol/L (23-31); Chloride 102 mmol/L (98-107); Estimated GFR 42; Globulin 3.5 g/dL (2.4-3.5); Glucose 191 mg/dL (80-115); Potassium 4.1 mmol/L (3.5-5.1); Protein, Total 7.3 g/dL (5.8-8.1); Sodium 139 mmol/L (136-145)
[2023-07-19 06:04] LABS: Troponin I Less than 0.010 ng/mL (< 0.028)
== END 2023-07-19 08:51 | disposition left against medical advice (07) ==
LOC: ERS 03:37
DX: Z53.21 Procedure and treatment not carried out due to patient leaving prior to being seen by health care provider (principal)
CPT/HCPCS: 36415; 71045; 80053; 83880; 84484; 85025; 93005

== ENCOUNTER 2023-07-19 18:26 | Emergency (ER) | payer MEDICARE ==
[2023-07-19 20:15] LABS: #Basophils 0.1 thou/uL (0.0-0.2); #Eosinphils 0.1 thou/uL (0.0-0.7); #Monocytes 0.6 thou/uL (0.11-0.59); #Neutrophils 5.7 thou/uL (1.40-6.50); %Basophils 0.9 % (0.0-1.0); %Eosinophils 1.5 % (0.0-10.0); %Lymphocytes 13.6 % (21.0-51.0); %Monocytes 8.2 % (0.0-10.0); %Neutrophils 75.5 % (42.0-75.0); Hematocrit 43.4 % (36.0-47.0); Hemoglobin 13.2 g/dL (12.0-16.0); Mean Corpuscular HGB CONC 30.4 g/dL (32.0-36.0); Mean Corpuscular Hemoglobin 25.7 pg (27.0-31.0); Mean Corpuscular Volume 84.4 fl (78.0-98.0); Mean Platelet Volume 11.2 fL (7.4-10.4); Platelet Count 305 10x3/uL (130-400); RBC Distribution Width 15.2 % (11.5-14.5); Red Blood Cell (RBC) Count 5.14 mill/uL (4.20-5.40); White Blood Cell (WBC) Count 7.6 10x3/uL (4.8-10.8)
[2023-07-19 20:29] LABS: SARS-CoV-2 NAA Rapid Test Not Detected (NotDetected)
[2023-07-19 20:40] LABS: ALT (SGPT) 22 U/L (8-55); AST (SGOT) 17 U/L (5-34); Albumin 3.9 g/dL (3.4-4.8); Alkaline Phosphatase 143 U/L (40-110); Anion Gap 14 mmol/L (10-20); BUN (Urea Nitrogen) 24 mg/dL (9.8-20.1); Bilirubin, Total 0.5 mg/dL (0.2-1.2); Calc. Creatinine Clearance 0 mL/min (70-130); Carbon Dioxide 28 mmol/L (23-31); Chloride 101 mmol/L (98-107); Estimated GFR 43; Globulin 3.5 g/dL (2.4-3.5); Glucose 149 mg/dL (80-115); Lipase 14 U/L (8-78); Protein, Total 7.4 g/dL (5.8-8.1); Sodium 139 mmol/L (136-145)
[2023-07-19 20:43] LABS: Troponin I Less than 0.010 ng/mL (< 0.028)
[2023-07-19 21:22] LABS: Bacteria/HPF None Seen HPF (None Seen); Bilirubin Negative (Negative); Blood, Urine Negative (Negative); CAUTI Indications for Culture Pelvic or flank pain; Clarity Clear (Clear); Glucose, Urine (Dipstick) Greater than 1000 mg/dL (Negative); Ketone, Urine Negative (Negative); Leukocyte Negative Leu/uL (Negative); Nitrite Negative (Negative); Protein, Urine (Dipstick) Negative (Neg-Trace); RBC/HPF 0-3 HPF (0-3); Squamous Epithelial 0-3 HPF (0-3); Urobilinogen Normal mg/dL (Less than 2); WBC/HPF 0-3 HPF (0-3); pH, Urine 5.5 (5.0-9.0)
[2023-07-19 21:24] LABS: Urine Culture Reflex No No
== END 2023-07-19 22:30 | disposition home or self-care (01) ==
LOC: ERS 18:26
DX: I11.0 Hypertensive heart disease with heart failure (principal); I50.9 Heart failure, unspecified; G89.29 Other chronic pain; R53.83 Other fatigue; R11.0 Nausea; I48.91 Unspecified atrial fibrillation
CPT/HCPCS: 0240U; 71045; 80053 ×2; 81001; 83690; 83880; 84484 ×2; 85025 ×2; 93005; 36415

== ENCOUNTER 2023-07-20 05:48 | Day surgery (SDC) | payer MEDICARE ==
[2023-07-20] MEDS ORDERED: HEPARIN 1000 UNIT/500 ML ONE (08:58)
[2023-07-20] MEDS ORDERED: Heparin 10,000 UNITS/ 10 ML VIAL ONE (08:58)
[2023-07-20] MEDS ORDERED: Verapamil 5 MG/2 ML VIAL ONE (09:14)
[2023-07-20] MEDS ORDERED: Nitroglycerin 50 MG/250 ML BOT 250 ML ONE (09:14)
[2023-07-20] MEDS ORDERED: Ondansetron PF 4 MG/2 ML Vial ONE ×2 (09:21→13:04)
[2023-07-20 09:53] LABS: Cardiac Risk 5.4 (Less than 4.5)
[2023-07-20] MEDS ORDERED: Midazolam HCl 2 mg/2 ml Vial ONE (10:14)
[2023-07-20] MEDS ORDERED: fentaNYL 50 mcg/mL 1 mL Vial ONE ×2 (10:14→11:20)
== END 2023-07-20 13:22 | disposition home or self-care (01) ==
LOC: SDC 05:48
PROVIDERS: ATTEND Internal Medicine Cardiovascular Disease
DX: I48.0 Paroxysmal atrial fibrillation (principal); I11.0 Hypertensive heart disease with heart failure; I50.9 Heart failure, unspecified; I42.0 Dilated cardiomyopathy; R06.02 Shortness of breath; Z53.8 Procedure and treatment not carried out for other reasons; Z79.82 Long term (current) use of aspirin; Z79.899 Other long term (current) drug therapy; Z79.01 Long term (current) use of anticoagulants; Z90.710 Acquired absence of both cervix and uterus; Z86.16 Personal history of COVID-19; Z90.49 Acquired absence of other specified parts of digestive tract
CPT/HCPCS: 80061; J3010; 36415; J1644; J2250; J2405

== ENCOUNTER 2023-08-06 16:08 | Outpatient (CLI) | payer MEDICARE ==
[2023-08-06 17:09] LABS: #Basophils 0.1 10x3/uL (0.0-0.2); #Eosinphils 0.1 10x3/uL (0.0-0.5); #Monocytes 0.8 10x3/uL (0.0-1.1); %Basophils 0.9 % (0.0-2.0); %Eosinophils 1.3 % (0.0-6.0); %Lymphocytes 16.9 % (18.0-47.0); %Monocytes 9.4 % (0.0-10.0); %Neutrophils 71.1 % (40.0-75.0); Hematocrit 43.1 % (34.9-44.5); Hemoglobin 13.8 g/dL (12.0-15.5); Mean Corpuscular Hemoglobin 26.4 pg (27.0-33.0); Mean Corpuscular Volume 82.4 fl (81.6-98.3); Platelet Count 328 10x3/uL (150-450); RBC Distribution Width 15.4 % (11.5-14.5); Red Blood Cell (RBC) Count 5.23 10x6/uL (3.90-5.03); White Blood Cell (WBC) Count 8.5 10x3/uL (3.5-10.5)
[2023-08-06 17:24] LABS: PTT 28.2 sec (22.0-33.0); Prothrombin Time 11.1 sec (9.5-12.1)
[2023-08-06 17:31] LABS: ALT (SGPT) 25 U/L (8-55); AST (SGOT) 21 U/L (5-34); Alkaline Phosphatase 156 U/L (40-110); Anion Gap 13 mmol/L (10-20); BUN (Urea Nitrogen) 25 mg/dL (9.8-20.1); Bilirubin, Direct 0.2 mg/dL (0.1-0.3); Bilirubin, Total 0.4 mg/dL (0.2-1.2); Calc. Creatinine Clearance 0 mL/min (70-130); Calcium 8.9 mg/dL (7.8-10.44); Carbon Dioxide 30 mmol/L (23-31); Chloride 99 mmol/L (98-107); Estimated GFR 41; Globulin 3.2 g/dL (2.4-3.5); Glucose 141 mg/dL (80-115); Potassium 4.2 mmol/L (3.5-5.1); Protein, Total 7.2 g/dL (5.8-8.1); Sodium 138 mmol/L (136-145)
== END 2023-08-06 16:09 | disposition home or self-care (01) ==
LOC: LABBT 16:08
PROVIDERS: ATTEND Internal Medicine Cardiovascular Disease
DX: Z01.818 Encounter for other preprocedural examination (principal); I48.91 Unspecified atrial fibrillation
CPT/HCPCS: 80053; 80076; 85025; 85610; 85730; 93005; 93010

== ENCOUNTER 2023-08-07 06:01 | Emergency (ER) | payer MEDICARE ==
[2023-08-07 06:30] LABS: #Basophils 0.1 thou/uL (0.0-0.2); #Eosinphils 0.1 thou/uL (0.0-0.7); #Monocytes 0.8 thou/uL (0.11-0.59); #Neutrophils 4.2 thou/uL (1.40-6.50); %Basophils 0.9 % (0.0-1.0); %Eosinophils 2.1 % (0.0-10.0); %Monocytes 11.4 % (0.0-10.0); %Neutrophils 63.3 % (42.0-75.0); Hematocrit 42.4 % (36.0-47.0); Hemoglobin 13.1 g/dL (12.0-16.0); Mean Corpuscular HGB CONC 30.9 g/dL (32.0-36.0); Mean Corpuscular Volume 84.1 fl (78.0-98.0); Mean Platelet Volume 10.4 fL (7.4-10.4); Platelet Count 287 10x3/uL (130-400); RBC Distribution Width 15.7 % (11.5-14.5); Red Blood Cell (RBC) Count 5.04 mill/uL (4.20-5.40); White Blood Cell (WBC) Count 6.7 10x3/uL (4.8-10.8)
[2023-08-07 06:48] LABS: ALT (SGPT) 21 U/L (8-55); AST (SGOT) 16 U/L (5-34); Albumin 3.6 g/dL (3.4-4.8); Alkaline Phosphatase 150 U/L (40-110); Anion Gap 10 mmol/L (10-20); BUN (Urea Nitrogen) 26 mg/dL (9.8-20.1); Bilirubin, Total 0.6 mg/dL (0.2-1.2); Calc. Creatinine Clearance 0 mL/min (70-130); Calcium 9.3 mg/dL (7.8-10.44); Carbon Dioxide 32 mmol/L (23-31); Chloride 101 mmol/L (98-107); Estimated GFR 38; Globulin 3.5 g/dL (2.4-3.5); Glucose 132 mg/dL (80-115); Magnesium 2.4 mg/dL (1.6-2.6); Potassium 4.3 mmol/L (3.5-5.1); Protein, Total 7.1 g/dL (5.8-8.1); Sodium 139 mmol/L (136-145)
[2023-08-07 06:51] LABS: Troponin I Less than 0.010 ng/mL (< 0.028)
== END 2023-08-07 08:08 | disposition home or self-care (01) ==
LOC: ERS 06:01
DX: R07.89 Other chest pain (principal); I11.0 Hypertensive heart disease with heart failure; I50.9 Heart failure, unspecified; I48.91 Unspecified atrial fibrillation; Z79.01 Long term (current) use of anticoagulants
CPT/HCPCS: 36415; 71045; 80053; 83735; 83880; 84484; 85025; 93005

== ENCOUNTER 2023-08-11 06:51 | Observation (INO) | payer MEDICARE ==
[2023-08-06 16:36] VITALS: BMI 52.9
[2023-08-11] MEDS ORDERED: Ondansetron PF 4 MG/2 ML Vial ONE (08:49)
[2023-08-11 09:14] LABS: Cardiac Risk 5.7 (Less than 4.5)
[2023-08-11] MEDS ORDERED: Heparin 10,000 UNITS/ 10 ML VIAL ONE (10:17)
[2023-08-11] MEDS ORDERED: Verapamil 5 MG/2 ML VIAL ONE (10:17)
[2023-08-11] MEDS ORDERED: Nitroglycerin 50 MG/250 ML BOT 250 ML ONE (10:17)
[2023-08-11] MEDS ORDERED: Lidocaine 1% (PF) 30 ML VIAL ONE (10:17)
[2023-08-11] MEDS ORDERED: fentaNYL PF 100 MCG/2 ML SYRINGE ONE (10:30)
[2023-08-11] MEDS ORDERED: Propofol 1,000 MG/100 ML VIAL IV ONE (10:31)
[2023-08-11] MEDS ORDERED: Iopamidol 370 76% 100 ML VIAL ONE (10:57)
[2023-08-11] MEDS ORDERED: fentaNYL 50 mcg/mL 1 mL Vial ONE (12:10)
== END 2023-08-11 15:30 | disposition home or self-care (01) ==
LOC: SDC 06:51 → INTOOBSV 07:38 → SURG A 07:38
PROVIDERS: ADMIT Internal Medicine Cardiovascular Disease; ATTEND Internal Medicine Cardiovascular Disease
PROC: 4A023N7 Measurement of Cardiac Sampling and Pressure, Left Heart, Percutaneous Approach (ICD-10-PCS; principal; 2023-08-11)
DX: I48.91 Unspecified atrial fibrillation (principal); R94.39 Abnormal result of other cardiovascular function study; Z79.899 Other long term (current) drug therapy
CPT/HCPCS: 80061; 93454; C1769 ×3; C1894 ×2; J3010; J1644; J2001; J2405; J2704; Q9967

== ENCOUNTER 2024-04-06 20:12 | Observation (INO) | payer MEDICARE ==
[2024-04-06 21:23] LABS: #Basophils 0.06 10x3/uL (0.0-0.2); %Basophils 0.8 % (0.0-1.0); %Eosinophils 0.7 % (0.0-10.0); %Monocytes 5.6 % (0.0-10.0); %Neutrophils 80.8 % (42.0-75.0); Hematocrit 40.9 % (36.0-47.0); Hemoglobin 13.8 g/dL (12.0-16.0); Mean Corpuscular HGB CONC 33.7 g/dL (32.0-36.0); Mean Corpuscular Volume 88.9 fL (78.0-98.0); Mean Platelet Volume 11.3 fL (7.4-10.4); Platelet Count 249 10x3/uL (130-400); RBC Distribution Width 12.9 % (11.5-14.5)
[2024-04-06] MEDS ORDERED: Ondansetron PF 4 MG/2 ML Vial ONE (21:37)
[2024-04-06 21:41] LABS: ALT (SGPT) 10 U/L (8-55); AST (SGOT) 17 U/L (5-34); Albumin 3.5 g/dL (3.4-4.8); Alkaline Phosphatase 159 U/L (40-110); Anion Gap 17 mmol/L (10-20); BUN (Urea Nitrogen) 13 mg/dL (9.8-20.1); Bilirubin, Total 0.7 mg/dL (0.2-1.2); Calc. Creatinine Clearance 0 mL/min (70-130); Calcium 9.3 mg/dL (7.8-10.44); Carbon Dioxide 24 mmol/L (23-31); Chloride 102 mmol/L (98-107); Estimated GFR 64; Globulin 3.4 g/dL (2.4-3.5); Glucose 217 mg/dL (80-115); Lipase 9 U/L (8-78); Potassium 3.1 mmol/L (3.5-5.1); Protein, Total 6.9 g/dL (5.8-8.1); Sodium 140 mmol/L (136-145)
[2024-04-06 21:43] LABS: Troponin I Less than 0.010 ng/mL (< 0.028)
[2024-04-06] MEDS ORDERED: Potassium Chloride 20 MEQ TAB ONE (21:56)
[2024-04-06] MEDS ORDERED: Aspirin Chewable 81 MG TAB ONE (21:56)
[2024-04-06 22:10] LABS: Magnesium 1.7 mg/dL (1.6-2.6)
[2024-04-06 22:14] LABS: Bilirubin Negative (Negative); Blood, Urine Negative (Negative); CAUTI Indications for Culture Pelvic or flank pain; Clarity Turbid (Clear); Glucose, Urine (Dipstick) Normal (Negative); Ketone, Urine 40 mg/dL (Negative); Leukocyte 25 Leu/uL (Negative); Nitrite Negative (Negative); Protein, Urine (Dipstick) 50 mg/dL (Neg-Trace); RBC/HPF 0-3 HPF (0-3); Specific Gravity, Urine 1.016 (1.002-1.036); pH, Urine 5.5 (5.0-9.0)
[2024-04-06 22:45] LABS: Bacteria/HPF Rare-Few HPF (None Seen)
[2024-04-06 22:46] LABS: Urine Culture Reflex No No
[2024-04-06] MEDS ORDERED: Ondansetron PF 4 MG/2 ML Vial IVP PRN (23:45)
[2024-04-07] MEDS ORDERED: Dextrose 5% in Water 1,000 ML IV PRN (00:21)
[2024-04-07] MEDS ORDERED: Dextrose 50% Abboject 50 ML SYRINGE SLOW IVP PRN (00:21)
[2024-04-07] MEDS ORDERED: Glucagon 1 MG/ML KIT IM PRN (00:21)
[2024-04-07] MEDS ORDERED: Insulin Lispro 100 UNIT/ML 10 ML VIAL SC PRN ×2 (00:21)
[2024-04-07] MEDS ORDERED: Ondansetron PF 4 MG/2 ML Vial ONE (00:31)
[2024-04-07 01:01] LABS: Troponin I 0.019 ng/mL (< 0.028)
[2024-04-07 01:25] VITALS: BMI 48.3
[2024-04-07] MEDS: Magnesium 2 GM/50 ML(in water) 2 GM in Premix 1 BAG IVPB SCH (01:38)
[2024-04-07 04:50] LABS: Anion Gap 12 mmol/L (10-20); BUN (Urea Nitrogen) 12 mg/dL (9.8-20.1); Calc. Creatinine Clearance 104 mL/min (70-130); Calcium 9.1 mg/dL (7.8-10.44); Carbon Dioxide 31 mmol/L (23-31); Chloride 102 mmol/L (98-107); Estimated GFR 65; Glucose 149 mg/dL (80-115); Magnesium 2.5 mg/dL (1.6-2.6); Potassium 3.9 mmol/L (3.5-5.1); Sodium 141 mmol/L (136-145)
[2024-04-07] MEDS: Ondansetron ODT 4 MG TAB SL PRN (04:56)
[2024-04-07] MEDS: Acetaminophen 325 MG TAB PO PRN (04:56)
[2024-04-07 04:57] LABS: Troponin I 0.013 ng/mL (< 0.028)
[2024-04-07] MEDS: Apixaban 5 MG TAB PO SCH (08:16)
[2024-04-07] MEDS: Rosuvastatin 10 MG TAB PO SCH (08:16)
[2024-04-07] MEDS: Amlodipine 10 MG TAB PO SCH (08:16)
[2024-04-07] MEDS: Sacubitril 49 MG/Valsartan 51 MG TABLET PO SCH (08:16)
[2024-04-07 08:17] VITALS: BP 126/84; TEMP 98.5
[2024-04-07] MEDS: Spironolactone 25 MG TAB PO SCH (08:17)
[2024-04-07] MEDS: Aspirin Chewable 81 MG TAB PO SCH (08:17)
[2024-04-07] MEDS: Furosemide 40 MG TAB PO SCH (08:17)
[2024-04-07] MEDS: FLU (Fluad Triv) TS24-25 (65UP)/MF59C/PF 45 MCG/0.5 ML Syringe IM ONE (09:18)
== END 2024-04-07 11:39 | disposition home or self-care (01) ==
LOC: ERS 20:12 → OBS 23:47
PROVIDERS: ADMIT Student in an Organized Health Care Education/Training Program; ATTEND Internal Medicine
DX: R07.89 Other chest pain (principal); I48.91 Unspecified atrial fibrillation; E11.22 Type 2 diabetes mellitus with diabetic chronic kidney disease; I13.0 Hypertensive heart and chronic kidney disease with heart failure and stage 1 through stage 4 chronic kidney disease, or unspecified chronic kidney disease; I50.30 Unspecified diastolic (congestive) heart failure; N18.9 Chronic kidney disease, unspecified; E87.6 Hypokalemia; E66.01 Morbid (severe) obesity due to excess calories; Z98.51 Tubal ligation status; Z90.49 Acquired absence of other specified parts of digestive tract; Z90.710 Acquired absence of both cervix and uterus; Z98.890 Other specified postprocedural states; Z68.42 Body mass index [BMI] 45.0-49.9, adult; Z79.82 Long term (current) use of aspirin; Z79.01 Long term (current) use of anticoagulants; Z79.899 Other long term (current) drug therapy
CPT/HCPCS: 71045; 80048; 81001; 82962; 83690; 83735 ×2; 83880; 84484 ×3; 90653; 93005; 96365; 96374; 96375; 96376 ×2; 99285; G0378 ×2; J2405 ×2; J3475; Q0162; 36415; 36416; 80053; 84443; 85025

== ENCOUNTER 2024-06-09 03:44 | Emergency (ER) | payer MEDICARE ==
[2024-06-09 04:27] LABS: #Basophils 0.06 10x3/uL (0.0-0.2); %Eosinophils 1.7 % (0.0-10.0); %Lymphocytes 21.9 % (21.0-51.0); %Neutrophils 65.9 % (42.0-75.0); Hematocrit 39.6 % (36.0-47.0); Hemoglobin 12.6 g/dL (12.0-16.0); Mean Corpuscular HGB CONC 31.8 g/dL (32.0-36.0); Mean Corpuscular Hemoglobin 29.3 pg (27.0-31.0); Mean Corpuscular Volume 92.1 fL (78.0-98.0); Mean Platelet Volume 10.8 fL (7.4-10.4); Platelet Count 273 10x3/uL (130-400); RBC Distribution Width 13.9 % (11.5-14.5)
[2024-06-09] MEDS ORDERED: Ondansetron ODT 4 MG TAB ONE (04:29)
[2024-06-09 04:59] LABS: Troponin I Less than 0.010 ng/mL (< 0.028)
[2024-06-09 05:00] LABS: ALT (SGPT) 8 U/L (8-55); AST (SGOT) 13 U/L (5-34); Albumin 3.4 g/dL (3.4-4.8); Alkaline Phosphatase 152 U/L (40-110); Anion Gap 12 mmol/L (10-20); BUN (Urea Nitrogen) 18 mg/dL (9.8-20.1); Bilirubin, Total 0.5 mg/dL (0.2-1.2); Calc. Creatinine Clearance 0 mL/min (70-130); Calcium 9.2 mg/dL (7.8-10.44); Carbon Dioxide 32 mmol/L (23-31); Chloride 102 mmol/L (98-107); Estimated GFR 50; Globulin 3.9 g/dL (2.4-3.5); Glucose 155 mg/dL (80-115); Protein, Total 7.3 g/dL (5.8-8.1); Sodium 142 mmol/L (136-145)
[2024-06-09] MEDS ORDERED: Furosemide 40 MG (4 mL) VIAL ONE (05:27)
== END 2024-06-09 05:46 | disposition home or self-care (01) ==
LOC: ERS 03:44
DX: I11.0 Hypertensive heart disease with heart failure (principal); I50.9 Heart failure, unspecified; I48.91 Unspecified atrial fibrillation
CPT/HCPCS: 71045; 80053; 83880; 84484; 85025; 93005; 96372; 99285; J1940; Q0162; 36415